=== PATIENT | female | born 1955 | race Caucasian/White ===

== ENCOUNTER 2021-04-07 16:11 | Emergency (ER) | payer MEDICARE, SELFPAY ==
--- NOTE | 2021-04-07 16:15 | ED.URI ---
HPI - URI/Sore Throat General Chief Complaint: Upper Respiratory Infection Stated Complaint: sinus infection and ear pain Time Seen by Provider: 04/07/21 16:15 Source: patient and RN notes reviewed History of Present Illness HPI Narrative: Patient is 65-year-old female who presents the urgent care with complaints of sinus pressure, postnasal drainage, cough and right ear pain. Patient states has been ongoing for approximately 2 weeks and she is concerned about pneumonia. Patient states that she was in the hospital in November due to sepsis pneumonia and she also had COVID last May. Patient currently denies of any fevers, nausea, vomiting, shortness of breath or chest pain. Patient has been using her inhalers as well as Mucinex. No other acute complaints. No acute distress noted. Patient aware of the plan of care. Some parts of this dictation were generated by voice recognition software and may contain typographical and/or grammatical inaccuracies. Related Data Home Medications Medication Instructions Recorded Confirmed albuterol sulfate See Rx Instructions .ROUTE 04/07/21 04/07/21 .COMPLEX PRN duloxetine [Cymbalta] 60 mg PO DAILY 04/07/21 04/07/21 lovastatin 40 mg PO DAILY 04/07/21 04/07/21 omeprazole 10 mg PO DAILY 04/07/21 04/07/21 Allergies Allergy/AdvReac Type Severity Reaction Status Date / Time Tetracyclines Allergy Swelling Verified 04/07/21 16:45 Review of Systems Review of Systems: CONSTITUTIONAL: Denies fever, chills, or sweats. EYES: Denies visual changes, redness, or discharge. ENT: Reported sinus pressure/congestion, postnasal drainage and right otalgia CARDIOVASCULAR: Denies chest pain, palpitations, or edema. RESPIRATORY: Reports of productive cough without dyspnea GASTROINTESTINAL: Denies abdominal pain, nausea, vomiting, or diarrhea. GENITOURINARY: Denies dysuria or hematuria. SKIN: Denies rash or itching. MUSCULOSKELETAL: Denies back pain, joint pain, or myalgia. NEUROLOGIC: Denies headache, numbness, or weakness. All other systems reviewed are negative, except as documented in HPI. PMFSH Comments At the time of my signature, I reviewed and agree with the nursing past medical, surgical, social, and family history. There is no relevant family history pertinent to the patient complaint. Exam Narrative: GENERAL: This is a well-nourished, well-developed patient, in no apparent distress. HEAD: normocephalic, atraumatic. EYES: PERRL. Sclera clear/white. Vision is grossly intact. EARS: External ears normal, auditory canals clear and without drainage, TMs normal without perforation. Hearing grossly intact. Moderate fluid noted by bilateral TMs without otitis NOSE: External nose normal with no obvious nasal discharge, nares without redness, no rhinorrhea. THROAT: Mucous membranes moist, posterior pharynx clear. Moderate postnasal drainage NECK: Neck supple CARDIOVASCULAR: Regular rate and rhythm without murmurs, gallops, or rubs. RESPIRATORY: Crackles throughout with slightly diminished bibasilar. (History of COPD/emphysema) SKIN: warm, intact with no suspicious lesions or rash, good texture and turgor. NEURO: awake, alert, and oriented to person, place and time. There were no obvious focal neurologic abnormalities. EXTREMITIES: No clubbing, cyanosis, or edema. Course Course Level of Care: Express Care Visit Vital Signs Vital signs: Vital Signs Temperature 98.9 F 04/07/21 16:24 Pulse Rate 85 04/07/21 16:24 Respiratory Rate 14 04/07/21 16:24 Blood Pressure 106/62 04/07/21 16:24 Pulse Oximetry 97 04/07/21 16:24 Temperature 98.9 F 04/07/21 16:24 Pulse Rate 85 04/07/21 16:24 Respiratory Rate 14 04/07/21 16:24 Blood Pressure 106/62 04/07/21 16:24 Pulse Oximetry 97 04/07/21 16:24 Reviewed MDM - URI/Sore Throat MDM Narrative Medical decision making narrative: Advised the patient to complete the oral antibiotic regimen as prescribed. Complete the steroid kavon
[2021-04-07 16:24] VITALS: BP 106/62; PULSE 85; RESP 14; TEMP 37.2; O2SAT 97
== END 2021-04-07 17:05 | disposition home or self-care (01) ==
PROVIDERS: Emergency Provider Nurse Practitioner Family; PCP Internal Medicine Geriatric Medicine
DX: J40 Bronchitis, not specified as acute or chronic (principal); J32.9 Chronic sinusitis, unspecified; Z86.16 Personal history of COVID-19; E78.00 Pure hypercholesterolemia, unspecified; Z96.659 Presence of unspecified artificial knee joint; F41.9 Anxiety disorder, unspecified; F32.A Depression, unspecified
CPT/HCPCS: 99213; G0463

== ENCOUNTER 2021-06-28 11:10 | Emergency (ER) | payer MEDICARE, SELFPAY ==
--- NOTE | ~2021-06-28 | XR_ITS ---
EXAMINATION: XR chest 2V EXAM DATE: 06/28/2021 11:46 INDICATION: COARSE LLL SOUNDS 06/28/21. COPD. TECHNIQUE: Frontal and lateral projections of the chest obtained and reviewed. There is no prior isai dy for comparison. FINDINGS: The lungs are hyperinflated which can be seen with chronic obstructive pulmonary disease ( a clinical diagnosis of functional impairment), but is not diagnostic of it. Linear right midlung zon e scarring or atelectasis. No confluent consolidation, pneumothorax or pleural effusion suspected. Ca rdiomediastinal silhouette is normal. There are no osseous abnormalities identified. IMPRESSION: 1. Chronic hyperinflation. 2. Right midlung zone scarring or atelectasis. Reviewed, dictated and finalized at location B.
[2021-06-28 11:14] VITALS: BP 114/70; PULSE 73; RESP 18; TEMP 36.9; O2SAT 99
--- NOTE | 2021-06-28 11:25 | ED.URI ---
HPI - URI/Sore Throat General Chief Complaint: Upper Respiratory Infection Stated Complaint: sore throat and ear pain Time Seen by Provider: 06/28/21 11:34 Source: patient and RN notes reviewed Mode of arrival: ambulatory Limitations: no limitations History of Present Illness HPI Narrative: 65-year-old female presents with concern for 1-1/2-week history of nasal congestion, postnasal drainage, foul taste in her mouth, cough, sore throat and ear pain. She denies fever, body aches, chills, sweats. She denies known sick contacts. Reports she is taken Mucinex that relief. MD elicited complaint: sore throat, rhinorrhea and nasal congestion Related Data Home Medications Medication Instructions Recorded Confirmed albuterol sulfate See Rx Instructions .ROUTE 04/07/21 06/28/21 .COMPLEX PRN duloxetine [Cymbalta] 60 mg PO DAILY 04/07/21 06/28/21 lovastatin 40 mg PO DAILY 04/07/21 06/28/21 omeprazole 10 mg PO DAILY 04/07/21 06/28/21 Allergies Allergy/AdvReac Type Severity Reaction Status Date / Time Tetracyclines Allergy Swelling Verified 06/28/21 11:12 Review of Systems Review of Systems: CONSTITUTIONAL: Report malaise, chills, sweats, or fever. EYES: Denies visual changes, redness, or discharge. ENT: Reports rhinorrhea, congestion, sinus pain, otalgia and sore throat. CARDIOVASCULAR: Denies chest pain, palpitations, or edema. RESPIRATORY: Reports cough. Denies dyspnea. GASTROINTESTINAL: Denies abdominal pain, nausea, vomiting, diarrhea SKIN: Denies rash or itching. MUSCULOSKELETAL: Denies myalgia. NEUROLOGIC: Denies headache. All systems reviewed & are unremarkable except as noted in HPI and below PMFSH Comments At time of signature, agree with nursing past medical, surgical, social and family history. There is no relevant family history pertinent to the presenting complaint Exam Narrative: GENERAL: Well-appearing, well-nourished, and in no acute distress. HEAD: Normocephalic EYES: PERRLA, conjunctivae clear ENT: Nares clear, turbinates edematous and erythematous,. Discharge. Mucous membranes moist. TM pearly salvador with dull light reflex bilaterally; no tragal tenderness. Oropharynx not erythematous without lesions. Tonsils not enlarged and without exudate, no drooling, no hoarseness, no trismus, uvula midline. NECK: Supple. No lymphadenopathy CHEST: Clear to auscultation, breath sounds equal. No wheezing, rhonchi, rales, or stridor. No respiratory distress, speaks in full sentences. Cough noted HEART: Regular rate and rhythm. No murmur heard. SKIN: Warm, dry, no rash. NEURO: Alert and oriented x3. PSYCH: Normal mood and affect Course Course Emergency Course: Patient is aware of diagnosis, understands and agrees to treatment plan. Anticipatory guidance given. Patient agrees to follow-up as directed and is aware of reasons to seek care at the emergency department. Portions of this record may have been created with voice recognition software Level of Care: Express Care Visit Vital Signs Vital signs: Vital Signs Temperature 98.5 F 06/28/21 11:14 Pulse Rate 73 06/28/21 11:14 Respiratory Rate 18 06/28/21 11:14 Blood Pressure 114/70 06/28/21 11:14 Pulse Oximetry 99 06/28/21 11:14 Temperature 98.5 F 06/28/21 11:14 Pulse Rate 73 06/28/21 11:14 Respiratory Rate 18 06/28/21 11:14 Blood Pressure 114/70 06/28/21 11:14 Pulse Oximetry 99 06/28/21 11:14 Reviewed. MDM - URI/Sore Throat MDM Narrative Medical decision making narrative: Differential diagnosis considered: Santana virus, strep pharyngitis, allergic rhinitis, upper respiratory tract infection, sinusitis, rhinosinusitis, nasopharyngitis. viral pharyngitis, otitis media, otitis externa, pneumonia, bronchitis, viral cough syndrome, viral syndrome, and influenza. Exam findings show no acute concerns or changes; patient is non-toxic appearing and is in no distress. Patient is appropriate for outpatient treatment and follow-up. Lab Bg
== END 2021-06-28 12:05 | disposition home or self-care (01) ==
PROVIDERS: Emergency Provider Nurse Practitioner; PCP Internal Medicine Geriatric Medicine
DX: J32.9 Chronic sinusitis, unspecified (principal); J40 Bronchitis, not specified as acute or chronic; E78.00 Pure hypercholesterolemia, unspecified; Z86.16 Personal history of COVID-19; F32.A Depression, unspecified; F41.9 Anxiety disorder, unspecified
CPT/HCPCS: 71046; 87081; 87804; 87880; 99213; G0463

== ENCOUNTER 2021-10-07 11:21 | Emergency (ER) | payer MEDICARE, SELFPAY ==
[2021-10-07 11:27] VITALS: BP 114/59; PULSE 84; RESP 20; TEMP 36.7; O2SAT 95
[2021-10-07 11:46] VITALS: BP 114/59; PULSE 84; RESP 20; TEMP 36.7; O2SAT 95
--- NOTE | 2021-10-07 12:30 | PC.NURSE ---
PT HAS BEEN UNABLE TO VOID AND HAS DRANK SEVERAL CUPS OF WATER. AWAITING URINE SPECIMEN. PROVIDER AWARE.
--- NOTE | 2021-10-07 12:30 | ED.GENADULT ---
HPI - General Adult General Chief complaint: Urogenital-Female Stated complaint: Back pains near kidney Source: patient Mode of arrival: ambulatory Limitations: no limitations History of Present Illness HPI narrative: Patient presents for evaluation of urinary symptoms. She states she has had symptoms for the last 2 weeks. Symptoms include left-sided flank pain, suprapubic pain, urinary hesitancy, urgency, frequency. She denies dysuria and hematuria. Denies any fever, chills, nausea, vomiting, vaginal bleeding or discharge. She has had urinary tract infections in the past and this feels similar. No history of kidney stone. No additional complaints or concerns. Related Data Home Medications Medication Instructions Recorded Confirmed albuterol sulfate 0.63 mg/3 mL See Rx Instructions .Route 04/07/21 10/07/21 solution for nebulization .COMPLEX PRN Shortness Of Breath duloxetine 60 mg capsule,delayed 60 mg PO DAILY 04/07/21 10/07/21 release (Cymbalta) lovastatin 40 mg tablet 40 mg PO DAILY 04/07/21 10/07/21 omeprazole 10 mg capsule,delayed 10 mg PO DAILY 04/07/21 10/07/21 release Allergies Allergy/AdvReac Type Severity Reaction Status Date / Time Tetracyclines Allergy Swelling Verified 10/07/21 11:40 Review of Systems Review of Systems: CONSTITUTIONAL: Denies fever, chills, or sweats. EYES: Denies visual changes, redness, or discharge. ENT: Denies rhinorrhea, congestion, sore throat, or otalgia. CARDIOVASCULAR: Denies chest pain, palpitations, or edema. RESPIRATORY: Denies cough or dyspnea. GASTROINTESTINAL:Reports suprapubic pain. Denies nausea, vomiting, or diarrhea. GENITOURINARY: Reports urinary frequency, urgency, hesitancy. Denies dysuria or hematuria. SKIN: Denies rash or itching. MUSCULOSKELETAL:Reports left lower back pain. Denies joint pain, or myalgia. NEUROLOGIC: Denies headache, numbness, dizziness, or weakness. PSYCHIATRIC: Denies anxiety or depression. [facility] Past Medical History Medical History (Updated 10/07/21 @ 13:35 by Bharat Martínez, TANI, NICOLE) Chronic pain Hyperlipidemia UTI (urinary tract infection) Surgical History Surgical History History of left knee replacement History of right knee joint replacement History of total hysterectomy Family History Family History Father Brain cancer Social History Social History Smoking packs per day: 0.5 Smoking cigarettes per day: 10.0 Smoking status: Current every day smoker Substance use: never Living arrangements: with family Gender identity (if verbalized by the patient): Female Sexual Orientation (if Verbalized by the Patient): Straight or Heterosexual Spiritual care concerns: No Exam Narrative: GENERAL: Well-appearing, well-nourished, and in no acute distress. HEAD: Normocephalic, atraumatic. EYES: PERRLA and EOMI. ENT: Nares clear, no rhinorrhea or epistaxis. Mucous membranes moist. Oropharynx without tonsillar hypertrophy exudate or other lesions. Bilateral TMs pearly salvador nonbulging NECK: Supple. No adenopathy or masses. No carotid bruits or JVD CHEST: Clear to auscultation. No respiratory distress. No wheezes rales or rhonchi HEART: Regular rate and rhythm. No murmur heard. Normal peripheral pulses. ABDOMEN: Soft, nontender, nondistended, normal active bowel sounds. BACK: Mild left sided CVA tenderness EXTREMITIES: Normal range of motion. No edema. SKIN: Warm, dry, no rash. NEURO: No focal deficits. Alert and oriented x3. PSYCH: Normal mood and affect. Course Course Emergency Course: This is a 65-year-old female who presented with complaints of left lower back pain and urinary symptoms. Was concerned she had a kidney stone. She thought she may have a urinary tract infection. There was no evidence of infection in her
== END 2021-10-07 13:40 | disposition home or self-care (01) ==
PROVIDERS: Emergency Provider Nurse Practitioner
DX: N23 Unspecified renal colic (principal); R35.0 Frequency of micturition; R39.15 Urgency of urination; R39.11 Hesitancy of micturition; E78.5 Hyperlipidemia, unspecified; Z96.653 Presence of artificial knee joint, bilateral; F17.219 Nicotine dependence, cigarettes, with unspecified nicotine-induced disorders
CPT/HCPCS: 81003; 99212; G0463

== ENCOUNTER 2022-02-23 17:51 | Emergency (ER) | payer MEDICARE, SELFPAY ==
[2022-02-23 18:08] VITALS: BP 113/61; PULSE 105; RESP 18; TEMP 37.2; O2SAT 94
--- NOTE | 2022-02-23 19:30 | ED.URI ---
HPI - URI/Sore Throat General Chief Complaint: Upper Respiratory Infection Stated Complaint: Sinus Pain/Ear Pain Time Seen by Provider: 02/23/22 19:30 Source: patient, RN notes reviewed and old records reviewed Mode of arrival: ambulatory Limitations: no limitations History of Present Illness HPI Narrative: 66 year old female accompanied by spouse who is also ill presents to express care with complaints of one week duration of sinus congestion, pressure, drainage of yellow green drainage with occasional bloody nose, ear pain and pressure some post nasal drainage in throat. Patient denies any sore throat, fevers, wheezing or shortness of breath. Patient is daily tobacco user. Patient reports that she had COVID one year ago ad was very ill at that time. Patient reports that she has had COVID vaccinations. She has been taking Sudafed for her congestion MD elicited complaint: rhinorrhea, nasal congestion, sinus pain and other (frontal headache) Pertinent past history: pneumonia and other (tobacco abuse) Pain scale (0-10): 9 Treatments prior to arrival: acetaminophen, ibuprofen and other (sudafed, ) Related Data Home Medications Medication Instructions Recorded Confirmed albuterol sulfate 0.63 mg/3 mL See Rx Instructions .Route 02/23/22 02/23/22 solution for nebulization .COMPLEX PRN sob albuterol sulfate 90 mcg/actuation 2 puff inhalation QID PRN sob 02/23/22 02/23/22 aerosol inhaler duloxetine 60 mg capsule,delayed 60 mg PO DAILY 02/23/22 02/23/22 release lovastatin 40 mg tablet 40 mg PO DAILY 02/23/22 02/23/22 Allergies Allergy/AdvReac Type Severity Reaction Status Date / Time Tetracyclines Allergy Swelling Verified 02/23/22 19:02 Review of Systems Review of Systems: CONSTITUTIONAL: Denies fever, chills, or sweats. EYES: Denies visual changes, redness, or discharge. ENT: Reports rhinorrhea, congestion, no sore throat, positive for otalgia. CARDIOVASCULAR: Denies chest pain, palpitations, or edema. RESPIRATORY: Denies cough or dyspnea. GASTROINTESTINAL: Denies abdominal pain, nausea, vomiting, or diarrhea. GENITOURINARY: Denies dysuria or hematuria. SKIN: Denies rash or itching. MUSCULOSKELETAL: Denies back pain, joint pain, or myalgia. NEUROLOGIC: frontal headache, no numbness, or weakness. PSYCHIATRIC: Positive history of anxiety or depression. All systems reviewed & are unremarkable except as noted in HPI and below PMFSH Past Medical History Medical History (Updated 03/02/22 @ 17:29 by Susan Luna NP) Chronic pain Hyperlipidemia UTI (urinary tract infection) Surgical History Surgical History History of left knee replacement History of right knee joint replacement History of total hysterectomy Family History Family History Father Brain cancer Social History Social History (Updated 03/02/22 @ 17:25 by Susan Luna NP) Smoking packs per day: 0.5 Smoking cigarettes per day: 10.0 Years smoked: 50 Smoking pack-years: 25.00 Smoking status: Current every day smoker Substance use: never Gender identity (if verbalized by the patient): Female Sexual Orientation (if Verbalized by the Patient): Straight or Heterosexual Spiritual care concerns: No Comments At time of signature, agree with nursing past medical, surgical, social and family history. There is no relevant family history pertinent to the presenting complaint Exam Narrative: GENERAL: Well-appearing, well-nourished, and in no acute distress. HEAD: Normocephalic, atraumatic. EYES: PERRLA and EOMI. ENT: Nares red and swollen yellow green rhinorrhea. Mucous membranes moist.Roght TM red and bulging Left TM normal with dull light reflex, throat red with no lesions or exudates,post nasal drainage noted. NECK: Supple.no lymphadenopathy CHEST:scattered wheezes on auscultation. No respiratory distress.SAO2
== END 2022-02-23 20:00 | disposition home or self-care (01) ==
PROVIDERS: Emergency Provider Registered Nurse; PCP Internal Medicine Geriatric Medicine
DX: J32.9 Chronic sinusitis, unspecified (principal); H66.91 Otitis media, unspecified, right ear; J40 Bronchitis, not specified as acute or chronic; F17.210 Nicotine dependence, cigarettes, uncomplicated; E78.5 Hyperlipidemia, unspecified; Z96.653 Presence of artificial knee joint, bilateral
CPT/HCPCS: 99213; G0463

== ENCOUNTER 2024-11-23 11:00 | Emergency (ER) | payer MEDICARE, SELFPAY ==
--- OUTSIDE RECORDS SUMMARY | 2022-05-17 03:00 | XMS_ITS | Continuity of Care Document ---
Author Organization [facility] [place] Address [address] [facility] utiedilberto Garcia [address] [place] [phone] Phone Care Team Providers Care Superintendent Plant Name Role Phone Nate Gonzales MD Unavailable Unavailable Allergies, Adverse Reactions, Alerts Substance Reaction Status Criticality sertraline Active No Information risedronate sodium Active No Inform ation ibandronate sodium Active No Inform ation clonidine Active No Information Antihistamines - Alkylamine Active No Information alendronate sodium Active No Inform ation tetracycline Active No Information Medications Medication Instructions Dosage Effective Dates (start - stop) Status Comments Vitamin B-12 1,000 mcg tablet take one tablet by mouth daily - Active Vitamin D3 2,000 unit capsule take one tablet by mouth daily - Active albuterol sulfate 2.5 mg/3 mL (0.083 %) solution for nebulization inhale 3 milliliter by nebulization route 3 times every day 2.5 MG - Active azelastine 137 mcg (0.1 %) nasal spray aerosol spray 2 spray by intranasal route 2 times every day in each nostril - Active tramadol 50 mg tablet take 1 tablet by o ral route every 6 hours as needed 50 MG - Active lovastatin 40 mg tablet take 2 tablet by oral route every day with the evening meal 80 MG - Active Macrobid 100 mg capsule take 1 capsule by oral route every 12 hours with food 100 MG - Active Procedures Procedure Date No Charge Optomap Fundus Photos 023 No Charge Refraction Eye Exam, New Patient No Charge GDX Retina No Charge Refraction Post-op Follow-up Visit Post-op Follow-up Visit Post-op Follow-up Visit Remove Cataract, Insert Lens No Charge Refraction Post-op Follow-up Visit Post-op Follow-up Visit Post-op Follow-up Visit Remove Cataract, Insert Lens No Charge Refraction No Charge Orbscan IOLMaster IOLMaster Eye Exam, New Patient Advance Directives Directive Yes / No Effective Date File Name No Information Encounters Encounter Description Practice Location Reason(s) For Visit Diagnoses Date Provider Providers Copied on Encounter [facility] [employer] [facility], [facility] [address], [place], [place], [id number], [place] tel:[phone] SEC [place] YULIANA Professional yag pc evaluation (chief complaint) Presence of intraocular lensVitreous degeneration , bilateral Mar-0 3-202 3 Christian Sullivan. [address] [facility], [facility] [place], [address], [place]. tel:[phone] Referring Provider: Lu Reynolds OD, [address], [address]. tel:[phone] [facility], [address] [address], [place], [place], [id number], [place] tel:[phone] SEC Rommel YULIANA Professional Post-Op (chief complaint) Follow-up examination after eye surgery 0-201 8 Christian Sullivan. [address] [facility], [facility] [address], [place], [place], [id number], [place]. tel:[phone] Referring Provider: Lu Reynolds OD, [address], [address]. tel:[phone] [facility] [facility], [address] [address], [place], [place], [id number], [place] tel:[phone] SEC Rommel BRIDGES Professional 1 wk CE PO (chief complaint) Follow-up examination after eye surgery 8 Bernard AUBREE Ivanna. [address] [facility], [facility] [place], [facility], . tel:[phone] Referring Provider: Nate Boyer, [address] [facility] [address], [place], [address]. tel:[phone] [facility], [address] [address], [place], [place], [id number], [place] [phone] SEC Rommel BRIDGES Professional 1 day CE PO (chief complaint) Follow-up examination after eye surgery 8 Rosen Juliana. [address] [place], [place], [facility], . tel:[phone] Referring Provider: Nate Boyer [address] [facility] [address], [place], [address]. tel:[phone] [facility], [address] [address], [place], [place], [id number], [place] tel:[phone] [facility] No Information 8 Christian Sullivan. [address] [facility] [place], [id number], [place]. tel:[phone] Referring Provider: Nate Boyer [address] [facility] [address], [place], [address]. tel:[phone] [facility], [address] [address], [place], [place], [id number], [place] tel:[phone] SEC Rommel BRIDGES Professional Post-Op (chief complaint) Follow-up examination after eye surgery 8 Rosen Juliana. [address] [place], [place], [facility], [place]. tel:[phone] Referring Provider: Nate Boyer [address] [facility] [address], [place], [address]. tel:[phone] [facility], [address] [address], [place], [place], [id number], [place] tel:[phone] SEC Rommel BRIDGES Professional 1 wk CE PO (chief complaint) Follow-up examination after eye surgery 8 Jessika Andrews. [address] [place], [address], [place]. tel:[phone] Referring Provider: Nate Boyer, [address] [facility] [address], [place], [address]. tel:[phone] [facility], [address] [address], [place], [place], [address], [place] [phone] SEC Rommel BRIDGES Professional 1 day p/o PCIOL (chief complaint) No Information 8 Jessika Andrews. [address] [place], [address], [place]. tel:[phone] Referring Provider: Nate Boyer, [address] [facility] [address], [place], [address]. tel:[phone] [facility], [address] [address], [place], [place], [address], [place] tel:[phone] [facility] No Information 8 Christian Sullivan. [address] [facility], [place], [address], [place]. tel:[phone] Referring Provider: Nate Boyer, [address] [facility] [address], [place], [address]. tel:[phone] [facility], [address] [address], [place], [place], [address], [place] [phone] SEC Rommel BRIDGES Professional Cataract evaluation (chief complaint) No Information Christian Sullivan. [address] [facility], [address], [place], [place], [address], [place]. tel:[phone] Referring Provider: Nate Boyer, [address] [facility] [address], [place], [address]. tel:[phone] Family History Family Member Type Diagnosis Age At Onset No Information Payers Payer name Insurance type Covered green party ID Denia greene(s) [facility] Mdcr Adv CI [id number] Social History Type Description Quantity Date Captured Comments Alcohol Use Details No Caffeine Use Details No Tobacco Use Status Cigarette smoker Smoking Status Current every day smoker Smoking Tobacco Use Details Cigarette: No Details Available Cigarette: No Details Available Sex Female Chief Complaint And Reason For Visit From encounter dated '05/17/2022 08:00'. yag pc evaluation (chief complaint). Description: The 66 year old patient presents for a yag pc evaluation per Dr. Lu Reynolds. Patient c/o decreased vision ou x 6 months. Patient is having a hard time reading small print. Patient has a hard time watching TV. Patient is bothered by glare around lights at night. Reason For Referral Reason For Referral No Information Plan Of Treatment Date Type Action Status Goal Tobacco cessation counseling completed Goal Tobacco cessation counseling completed Goal Tobacco cessation counseling completed Goal Tobacco cessation counseling completed History Of Present Illness Encounter Date Complaint History Of Prese nt Illness yag pc evaluation The 66 year ol d patient presents for a yag pc evaluation per Dr. Lu Reynolds. Patient c/o decreased vision ou x 6 months. Patient is having a hard time reading small print. Patient has a hard time watching TV. Patient is bothered by glare around lights at night. Post-Op The 61 year old female presents for a 1 month post op CE OD. Patient is pseudo ou. Patient is finished with drops. Patient c/o a smudge in OD vision and states its been there since sx. 1 wk CE PO The 61 year old female presents for evaluation of 1 wk CE PO in the right eye. Pt reports she is using Vigamox QID OD, Ketorolac QID OD, and Pred QID OD. Pt reports she sees a smudge in her VA, OD, intermittent, x about 3 days, right in the middle, like a thumbprint. Pt denies any pain or irritation today, OU. 1 day CE PO The 61 year old female presents for evaluation of 1 day CE PO in the right eye. Pt reports she is using Vigamox QID OD, Pred QID OD, and Ketorolac TID OD. PO instructions were given explained and understood by pt. Pt denies any pain or irritation today, OU. Post-Op The 61 year old female presents for a 2 week post op CE OS. Patient is using Pred, Vigamox and Ketorolac tid OS. Patient states OS is doing good. Patient wishes to Proceed with CE OD because vision is blurry and is bothered by glare at night. 1 wk CE PO The 61 year old female presents for evaluation of 1 wk CE PO in the left eye. Pt reports she is using Vigamox TID OS, Pred TID OS, and Ketorolac TID OS. Pt reports OS seems to be doing great, since CE and no pain or irritation today, OU. 1 day p/o PCIOL The 61 year old female presents for evaluation of 1 day p/o PCIOL in the left eye. Patient instructed on use of Vigamox, Pred, and Ketoralac as well as eye shield. Patient doing good everything is bright! Cataract evaluation The 61 year old female presents for evaluation of Cataract evaluation in the right eye and left eye. Hx of CAT OU. Pt denies any ocular Sx, OU. 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 Pt reports she has a hard time driving at night due to glare from oncoming headlights, OU, x 1 yr or so. Pt reports she doesn't use any gtts, OU. Pt reports OU feels terri, x couple mos. Functional Status Date Functional Assessmen t No Information Instructions Date Instruction Additional Infor sherry Impression/Plan Impression/Plan Impression/Plan As scheduled Related to Follo w-up examination after eye surgery Impression/Plan Related to Follo w-up examination after eye surgery As scheduled Related to Follo w-up examination after eye surgery Impression/Plan Related to Follo w-up examination after eye surgery As scheduled Related to Follo w-up examination after eye surgery Impression/Plan Related to Follo w-up examination after eye surgery As scheduled Related to Follo w-up examination after eye surgery Impression/Plan Related to Follo w-up examination after eye surgery Surgery advised: leeanna ks, benefits, alternatives discussed. Related to Age-related nuclear cataract, right eye Impression/Plan Assessments Type Assessment Date assessment Presence of intraocular lens May assessment Vitreous degeneration, bilateral Patient Care Teams Name Effective Dates (start - stop) Status Members No Information
--- NOTE | ~2024-11-23 | XR_ITS ---
EXAMINATION: XR chest 2V DATE: 11/23/2024 11:26 INDICATION: COPD. 2 weeks of cough and congestion. TECHNIQUE: frontal and lateral views of the chest were obtained. COMPARISON: Chest radiograph dated 06/28/2021 FINDINGS: Lungs are hyperexpanded. There are new nodular opacities projecting along the lateral right midlung zone suspicious for calcification associated with healing rib fractures. Mild streaky bibasilar atelectasis. No pleural effusion or pneumothorax. Heart size is normal. Unchanged old healed lateral left seventh rib. IMPRESSION: 1. Hyperexpansion of lungs and flattening of the diaphragm consistent with given history of COPD with mild streaky bibasilar atelectasis. 2. New nodular opacities projecting along the lateral right midlung zone most likely representing callus formation associated with healing rib fractures.. Correlate with clinical history and could consider either standard rib radiographs or low dose noncontrast chest CT for confirmation. Reviewed, dictated and finalized at location A. IMPRESSION: 1. Hyperexpansion of lungs and flattening of the diaphragm consistent with give n history of COPD with mild streaky bibasilar atelectasis. 2. New nodular opacities projecting along the lateral right midlung zone most l ikely representing callus formation associated with healing rib fractures.. Cor relate with clinical history and could consider either standard rib radiographs or low dose noncontrast chest CT for confirmation.
--- NOTE | ~2024-11-23 | XR_ITS ---
EXAMINATION: [id number]_RIBSBI_CR DATE: 11/23/2024 11:47 INDICATION: Abnormal chest x-ray with rib fractures 1. 3 views of the left ribs and 3 views of the right ribs were obtained in varying obliquities. COMPARISON: Chest radiograph dated 12/03/2024 FINDINGS: Relatively advanced bridging callus formation is seen about mildly displaced anterolateral right third-eighth rib fractures. Old healed fracture deformity at the lateral left seventh rib. Again seen is hyperexpansion lungs with increased lucency in the upper lung zones and mild flattening of the diaphragm consistent with COPD. Mild increased interstitial pattern with mild bronchial wall thickening at the bilateral lower lung zones without focal airspace opacities suggestive of mild pulmonary edema versus bronchitis/bronchiolitis. Heart size is normal. Mild lumbar dextrocurvature with moderate to severe lower lumbar spondylosis. IMPRESSION: 1. Calcified formation associated with likely early chronic healing fractures of the anterior right third-eighth ribs which accounts for the nodular opacities on prior chest radiograph. 2. Appearance consistent with COPD with mild increased initial pattern and bronchial wall thickening at the bilateral lower lung zones which could represent mild pulmonary edema or bronchitis/bronchiolitis. Reviewed, dictated and finalized at location A. IMPRESSION: 1. Calcified formation associated with likely early chronic healing fractures o f the anterior right third-eighth ribs which accounts for the nodular opacities on prior chest radiograph. 2. Appearance consistent with COPD with mild increased initial pattern and bron chial wall thickening at the bilateral lower lung zones which could represent m ild pulmonary edema or bronchitis/bronchiolitis.
[2024-11-23 11:10] VITALS: BP 114/68; PULSE 85; RESP 18; TEMP 37.1; O2SAT 93
--- NOTE | 2024-11-23 11:35 | ED.GENADULT ---
HPI - General Adult General Chief complaint: Upper Respiratory Infection Stated complaint: Chest Congestion/Cough Source: patient Mode of arrival: ambulatory Limitations: no limitations History of Present Illness HPI narrative: Patient presents for evaluation of respiratory symptoms for last 2 weeks. Cough is productive of green sputum. She has associated nasal congestion, green nasal discharge, and shortness of breath. She denies any fever, chills, nausea, vomiting. She has a history of COPD and recurrent pneumonia. She smokes half a pack per day. She has been taking some OTC medications without much improvement. No recent sick contacts to her knowledge. Related Data Home Medications ?Medication ?Instructions ?Recorded ?Confirmed ?Last Taken ?Type albuterol sulfate 0.63 mg/3 mL See Rx Instructions .Route 02/23/22 02/23/22 Unknown History solution for nebulization .COMPLEX PRN sob albuterol sulfate 90 mcg/actuation 2 puff inhalation QID PRN sob 02/23/22 02/23/22 Unknown History aerosol inhaler duloxetine 60 mg capsule,delayed 60 mg PO DAILY 02/23/22 02/23/22 Unknown History release lovastatin 40 mg tablet 40 mg PO DAILY 02/23/22 02/23/22 Unknown History umeclidinium 62.5 mcg-vilanterol inhalation 11/23/24 Unknown History 25 mcg/actuation powdr for inhalation (Anoro Ellipta) Allergies Allergy/AdvReac Type Severity Reaction Status Date / Time Tetracyclines Allergy Swelling Verified 11/23/24 11:12 Review of Systems Review of Systems: CONSTITUTIONAL: Denies fever, chills, or sweats. EYES: Denies visual changes, redness, or discharge. ENT: Reports sinus congestion and thick drainage from the nares. CARDIOVASCULAR: Reports pleuritic chest pain. Denies chest pain otherwise. Palpitations, or edema. RESPIRATORY: Reports productive cough of green sputum and shortness of breath. GASTROINTESTINAL: Denies abdominal pain, nausea, vomiting, or diarrhea. GENITOURINARY: Denies dysuria or hematuria. SKIN: Denies rash or itching. MUSCULOSKELETAL: Denies back pain, joint pain, or myalgia. NEUROLOGIC: Denies headache, numbness, dizziness, or weakness. PSYCHIATRIC: Denies anxiety or depression. [facility] Past Medical History Medical History GERD (gastroesophageal reflux disease) COPD (chronic obstructive pulmonary disease) UTI (urinary tract infection) Hyperlipidemia Chronic pain Surgical History Surgical History History of left knee replacement History of right knee joint replacement History of total hysterectomy Family History Family History Father Brain cancer Social History Social History Smoking packs per day: 0.5 Smoking cigarettes per day: 10.0 Years smoked: 50 Smoking pack-years: 25.00 Smoking status: Current every day smoker Substance use: never Living arrangements: with family Gender identity (if verbalized by the patient): Female Sexual Orientation (if Verbalized by the Patient): Straight or Heterosexual Spiritual care concerns: No Exam Narrative: GENERAL: Well-appearing, well-nourished, and in no acute distress. HEAD: Normocephalic, atraumatic. EYES: PERRLA and EOMI. ENT: Nares clear, no rhinorrhea or epistaxis. Mucous membranes moist. Oropharynx without tonsillar hypertrophy exudate or other lesions. Bilateral TMs pearly salvador nonbulging NECK: Supple. No adenopathy or masses. No carotid bruits or JVD CHEST: Rales noted on the right. Cough present on exam. No respiratory distress. No wheezes HEART: Regular rate and rhythm. No murmur heard. Normal peripheral pulses. ABDOMEN: Soft, nontender, nondistended, normal active bowel sounds. EXTREMITIES: Normal range of motion. No edema. SKIN: Warm, dry, no rash. NEURO: No focal deficits. Alert and oriented x3. PSYCH: Normal mood and affect. Course Course Emergency Course: This is a 69-year-old female who presented for evaluation of a cough. She has a history of pneumonia and this feels similar. Chest x-ray with opacity identified. There is concern for potential rib fracture. I spoke with patient she indicates she did sustain rib fractures last year after a fall. X-rays of the ribs were obtained. Clinically, her presentation is consistent with pneumonia. Will treat her due to underlying risk factors of smoking and COPD, and history of pneumonia in the past. Smoking cessation encouraged. Follow up with primary provider. Go to the ER for worsening symptoms. Pt in agreement with plan of care. Level of Care: Express Care Visit Vital Signs Vital signs: Vital Signs Temperature 37.1 C 11/23/24 11:10 Pulse Rate 85 11/23/24 11:10 Respiratory Rate 18 11/23/24 11:10 Blood Pressure 114/68 11/23/24 11:10 Pulse Oximetry 93 11/23/24 11:10 Oxygen Delivery Room Air 11/23/24 11:10 Temperature 37.1 C 11/23/24 11:10 Pulse Rate 85 11/23/24 11:10 Respiratory Rate 18 11/23/24 11:10 Blood Pressure 114/68 11/23/24 11:10 Pulse Oximetry 93 11/23/24 11:10 Oxygen Delivery Room Air 11/23/24 11:10 Medical Decision Making Vital Signs Vital Signs: Vital Signs Temperature 37.1 C 11/23/24 11:10 Pulse Rate 85 11/23/24 11:10 Respiratory Rate 18 11/23/24 11:10 Blood Pressure 114/68 11/23/24 11:10 Pulse Oximetry 93 11/23/24 11:10 Oxygen Delivery Room Air 11/23/24 11:10 Temperature 37.1 C 11/23/24 11:10 Pulse Rate 85 11/23/24 11:10 Respiratory Rate 18 11/23/24 11:10 Blood Pressure 114/68 11/23/24 11:10 Pulse Oximetry 93 11/23/24 11:10 Oxygen Delivery Room Air 11/23/24 11:10 Imaging Data Radiologist's impression: EXAMINATION: XR chest 2V DATE: 11/23/2024 11:26 INDICATION: COPD. 2 weeks of cough and congestion. TECHNIQUE: frontal and lateral views of the chest were obtained. COMPARISON: Chest radiograph dated 06/28/2021 FINDINGS: Lungs are hyperexpanded. There are new nodular opacities projecting along the lateral right midlung zone suspicious for calcification associated with healing rib fractures. Mild streaky bibasilar atelectasis. No pleural effusion or pneumothorax. Heart size is normal. Unchanged old healed lateral left seventh rib. IMPRESSION: 1. Hyperexpansion of lungs and flattening of the diaphragm consistent with given history of COPD with mild streaky bibasilar atelectasis. 2. New nodular opacities projecting along the lateral right midlung zone most likely representing callus formation associated with healing rib fractures.. Correlate with clinical history and could consider either standard rib radiographs or low dose noncontrast chest CT for confirmation. EXAMINATION: [id number] DATE: 11/23/2024 11:47 INDICATION: Abnormal chest x-ray with rib fractures 1. 3 views of the left ribs and 3 views of the right ribs were obtained in varying obliquities. COMPARISON: Chest radiograph dated 12/03/2024 FINDINGS: Relatively advanced bridging callus formation is seen about mildly displaced anterolateral right third-eighth rib fractures. Old healed fracture deformity at the lateral left seventh rib. Again seen is hyperexpansion lungs with increased lucency in the upper lung zones and mild flattening of the diaphragm consistent with COPD. Mild increased interstitial pattern with mild bronchial wall thickening at the bilateral lower lung zones without focal airspace opacities suggestive of mild pulmonary edema versus bronchitis/bronchiolitis. Heart size is normal. Mild lumbar dextrocurvature with moderate to severe lower lumbar spondylosis. IMPRESSION: 1. Calcified formation associated with likely early chronic healing fractures of the anterior right third-eighth ribs which accounts for the nodular opacities on prior chest radiograph. 2. Appearance consistent with COPD with mild increased initial pattern and bronchial wall thickening at the bilateral lower lung zones which could represent mild pulmonary edema or bronchitis/bronchiolitis. Discharge Plan Discharge Clinical Impression: Community acquired pneumonia Patient Disposition: Home Condition: Stable Instructions: Antibiotic Form, Pneumonia (ED) Patient Language: Chinese Prescriptions: New azithromycin 250 mg tablet See Rx Instructions .ROUTE .COMPLEX Qty: 6 0RF Rx Instructions: For 250 mg dose pack: take 500 mg today (day 1), then 250 mg for 4 days (days 2-5) prednisone 50 mg tablet 50 mg PO DAILY Qty: 5 0RF amoxicillin-pot clavulanate 875-125 mg tablet 1 tablet PO Q12H Qty: 20 0RF No Action albuterol sulfate 0.63 mg/3 mL solution for nebulization See Rx Instructions .ROUTE .COMPLEX PRN (Reason: sob) Rx Instructions: as prescribed lovastatin 40 mg tablet 40 mg PO DAILY duloxetine 60 mg capsule,delayed release(DR/EC) 60 mg PO DAILY albuterol sulfate 90 mcg/actuation Hfa Aerosol Inhaler 2 puff INHALATION QID PRN (Reason: sob) umeclidinium-vilanterol [Anoro Ellipta] 62.5-25 mcg/actuation blister with device INHALATION Follow-up/Referrals: Malgorzata,MD Debbie [Primary Care Provider] Time of Disposition: 12:30
--- OUTSIDE RECORDS SUMMARY | 2024-11-23 12:49 | XMS_ITS | Encounter Summary ---
Author Organization [facility] Healthcare Address [address] [place] [address] Care Team Providers Care Pipe Supervisor Name Role Phone Debbie Mcgarry MD Primary Care Provider [phone] Talon Levy MD Unavailable [phone] Nerissa Rosario MD Unavailable [phone] Cricket Gamez MD Unavailable Encounter Details Date Type Department Care Team (Late st Contact Info) Description 06/24/2022 Telephone [facility] [address] [place] [address] Amalia Llanes, RT Social History Tobacco Use Types Packs/Day Years Used Date Smoking Tobacco: Every Day Cigarettes 1 53.7 Started: 1971 Passive Smoke Exposure: Never Smokeless Tobacco: Never Alcohol Use Standard Drinks/Week Comments No 0 (1 standard drink = 0.6 oz pur e alcohol) AUDIT-C Answer Date Recorded Q1: How often do you have a drink containing alc ohol? 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[employer]) Not on file Not on file Not on file documented as of this encounter Plan of Treatment Not on file documented as of this encounter Visit Diagnoses Not on filedocumented in this encounter Additional Health Concerns Infection Onset Date Last Indicated Resolved Time COVID: Suspected 06/30/2024 06/30/2024 06/30/2024 4:55 PM CDT documented as of this encounter Care Teams Pipe Supervisor Relationship Specialty Start Date End Date Debbie Mcgarry MD PCP - General 06/14/16 Talon Levy MD [address] [place] [address] [address] [address] Surgeon Orthopedic Surgery 01/07/17 [place] [id number] [place] [address] Referring Physician Endocrinology Diabetes & Metabolism 08/02/21 [place] [id number] [place] [address] Consulting Physician Pulmonary Disease 08/23/21 documented as of this encounter
--- OUTSIDE RECORDS SUMMARY | 2024-11-23 12:50 | XMS_ITS | Clinical Summary ---
Author Organization [facility] Address [address] [place] [address] Care Team Providers Care Sewing Trimmer Name Role Phone Debbie Mcgarry MD Primary Care Provider [phone] Talon Levy MD Unavailable [phone] Nerissa Rosario MD Unavailable [phone] Cricket Gamez MD Unavailable Allergies Active Allergy Reactions Criticality Noted Date Comments Alendronate Nausea only Low Antihistamines - Alkylamine Other (See comments) Low Reaction: skin crawl, Antihistamines - Ethanolamine Unknown Low Skin cralw Clonidine Fatigue Low Reaction: fatigue, Ibandronate Other (See comments) Low Reaction: gi, Risedronate Nausea only Low Reaction: nausea, Sertraline Other (See comments) Low Reaction: wt gain, Tetracycline Swelling Medium Medications cyanocobalamin (Vitamin B-12) 1,000 mcg tablet take 1 by Oral route every day 90 3 012 Active cholecalciferol (VITAMIN D-3) 2,000 unit capsule take 1 by Oral route every day 90 1 012 Active acetaminophen (TYLENOL) 500 mg tabletIndications :Pain Take 1 tablet (500 mg total) by mouth every 6 (six) hours as needed for pain Active albuterol 0.63 mg/3 mL nebulizer solutionIndicatio ns:Centrilobular emphysema (HCC) Take 3 mL (0.63 mg total) by nebulization every 6 (six) hours as needed for wheezing 360 mL [address] (NexIUM) 20 mg capsule Take 1 capsule (20 mg total) by mouth daily before breakfast Active albuterol HFA (Proventil HFA) 90 mcg/actuation inhalerIndication s:Chronic obstructive pulmonary disease, unspecified COPD type (HCC) Inhale 2 puffs every 4 (four) hours as needed for wheezing or shortness of breath 18 [address] (CYMBALTA) 60 mg capsuleIndication s:Arthritis Take 1 capsule (60 mg total) by mouth daily 90 capsule 3 025 Active lovastatin (MEVACOR) 40 mg tabletIndications :Multiple-type hyperlipidemia Take 1 tablet (40 mg total) by mouth daily 90 tablet 3 025 Active ipratropium-albut Nii (DUO-NEB) 0.5-2.5 mg/3 mL nebulizer solutionIndicatio ns:COPD Exacerbation Take 3 mL by nebulization every 6 (six) hours 180 mL 025 Active lidocaine (ASPERCREME) 4 % adhesive patch,medicatedIn dications:Rib contusion, right, subsequent encounter Place 1 patch on the skin 2 (two) times a day for 12 hours 8 patch 2 Active Additional Information Patient not taking.Reported on 10/11/2024 diclofenac sodium (VOLTAREN) 1 % gelIndications:Ri b contusion, right, subsequent encounter Apply 2 g topically 4 (four) times a day 100 g 2 025 Active Additional Information Patient not taking.Reported on 10/11/2024 buPROPion XL (WELLBUTRIN XL) 150 mg 24 hr tabletIndications :Tobacco dependence syndrome Take 1 tablet (150 mg total) by mouth every morning 30 tablet 1 025 Active celecoxib (CeleBREX) 200 mg capsuleIndication s:Rib contusion, right, subsequent encounter Take 1 capsule (200 mg total) by mouth daily 30 capsule 1 025 Active Additional Information Patient not taking.Reported on 10/11/2024 umeclidinium-marilu nteroL (ANORO ELLIPTA) 62.5-25 mcg/actuation blister with deviceIndications :Bronchospasm Prevention with COPD Inhale 1 puff daily 90 each 3 025 2025 Active methylPREDNISolon e (Medrol, Tanvir,) 4 mg Dosepack Take as directed on package 1 packet 025 Active aspirin 81 mg chewable tabletIndications :Deep Vein Thrombosis Prevention Take 1 tablet (81 mg total) by mouth 2 (two) times a day for 28 days 56 tablet 019 2020 Discontinued fluticasone propionate (FLONASE) 50 mcg/actuation nasal sprayIndications: Chronic rhinitis Administer 2 sprays into each nostril daily 30 mL 5 020 2020 Discontinued ipratropium (ATROVENT) 0.03 % nasal sprayIndications: Chronic rhinitis Administer 2 sprays into each nostril 2 (two) times a day 30 mL 5 020 2020 Discontinued Active Problems Problem Noted Date Diagnosed Date Syncope 07/01/2024 CAP (community acquired pneumonia) 06/30/2024 Assessment & Plan (09/15/2024 3:20 PM CDT): Possible aspiration pneumonia Her repeat CT shows significant resolution of the opacities to the right lower lobe and clinically she has improved. I am awaiting radiology read Consider swallow study in the future if she were to have recurrent pneumonias Assessment & Plan (07/11/2024 5:30 PM CDT): Possible aspiration pneumonia although she denies difficulty swallowing Repeat CT in about 5 weeks to ensure resolution Consider swallow study in the future Nasal polyp 10/13/2023 Assessment & Plan (10/13/2023 8:21 PM CDT): Complaining of nosebleeds since yesterday. Nasal polyp found in right nasal cavity on exam today. no current bleeding or acute signs of infection. Mild maxillary tenderness. Prescribed Afrin nasal spray as instructed. We will refer to ENT for further assessment and likely nasal endoscopy. Recurrent epistaxis 10/13/2023 Assessment & Plan (10/13/2023 8:23 PM CDT): Nose bleeds as described in HPI. Mild maxillary tenderness and right nasal polyp found on exam today. No current bleeding or acute signs of infection. Prescribed Afrin nasal spray as instructed. We will refer to ENT for polyp and likely need of nasal endoscopy. Cigarette nicotine dependence without complicati on 07/01/2023 Assessment & Plan (09/15/2024 3:24 PM CDT): - Smoking cessation counseling and techniques reviewed at length - Avoid triggers and use distraction techniques - [place] [employer] [facility]uit line: 4-881-HXZB-YES for free services 4 minutes spent discussing cessation She is uninterested in NRT today Assessment & Plan (07/11/2024 5:26 PM CDT): - Smoking cessation counseling and techniques reviewed at length - Avoid triggers and use distraction techniques - [place] [employer]uit line: 0-984-JFXO-YES for free services 5 minutes spent discussing cessation She is pre-contemplative Assessment & Plan (07/01/2023 11:57 AM CDT): - Smoking cessation counseling and techniques reviewed at length - Avoid triggers and use distraction techniques - [place] [employer] [facility] line: 7-745-MNDP-YES for free services 3 minutes spent discussing cessation She will let me know if she decides she wants to quit in the future Subacromial impingement of left shoulder 023 Dysfunction of left rotator cuff 07/03/2022 COPD exacerbation 11/21/2021 Assessment & Plan (11/21/2021 4:29 PM CDT): Fever and chills last week - resolved today. Patient reports wheezing, purulent nasal discharge and yellow-tinged sputum production with coughing - denies shortness of breath, chest tightness/pain, decreased activity tolerance. Diffuse wheezing throughout lung lomas and severe frontal sinus tenderness on exam. Currently taking OTC Tylenol and Mucinex. Will start on Augmentin 875/125 PO BID times 10 days. Ordered CXR to rule out pneumonia. COVID and influenza A/B swabs negative. Follow up with Debbie Moss as scheduled on 11/30/2021 or sooner as necessary. Thyroid nodule greater than or equal to 1.5 cm in diameter incidentally noted on imaging study 06/19/2021 Overview (06/19/2021): 2.8 by 2.1 cm thyroid nodule for Found on CT scan lung June 2021. Thyroid sonogram and TSH ordered Multiple pulmonary nodules d etermined by computed tomography of lung 02/26/2021 Overview (02/26/2021): January 2021 chest x-ray 1. New linear densities of the right mid and lower chest appear to represent areas of worsening interval scarring change. Resolving infiltrates may also be considered. Two month follow-up films suggested to document stability and or improvement of this finding. 2. Mild COPD again noted. 3. No pneumothorax seen. February [address] lung cancer screening (+) for large mass right upper lobe and a small nodule left upper lobe COMPARISON: Chest CT without contrast 03/02/2000 FINDINGS: SMOKING RELATED LUNG DISEASE: Severe centrilobular pulmonary emphysema. LUNG NODULES: Patient has developed a spiculated nodular opacity inferior right upper lobe measuring up to 5.6 by 1.8 cm. Some adjacent millimetric nodules. Development of a 1 cm spiculated nodule left upper lobe image 24. Vane Dick M.D. at [facility] Assessment & Plan (07/01/2023 11:55 AM CDT): Left upper lobe spiculated nodule remains stable Continue with annual screening, next due June 2024 History of total knee arthroplasty, right 2018 History of Freeman's esophagus 01/07/2017 Centrilobular emphysema 12/29/2016 Assessment & Plan (09/15/2024 3:21 PM CDT): Continue Anoro Ellipta one puff daily at the same time. She can use albuterol 2 puffs every 4-6 hours as needed only, discussed indications for use No significant peripheral eosinophilia We have discussed signs and symptoms that would require earlier evaluation or change to her plan of care. Assessment & Plan (07/11/2024 5:29 PM CDT): Continue Anoro Ellipta one puff daily at the same time. We have reviewed technique She can use albuterol 2 puffs every 4-6 hours as needed only, discussed indications for use No significant peripheral eosinophilia Repeat PFT and six minute walk testing We have discussed signs and symptoms that would require earlier evaluation or change to her plan of care. Assessment & Plan (07/01/2023 11:56 AM CDT): She is not on maintenance inhaled therapy We have again discussed the benefits of dual bronchodilator therapy She is uninterested at this time She can use albuterol as needed only, discussed indications for use Multiple-type hyperlipidemia 07/31/2013 Overview (06/20/2016): Hyperlipemia Osteoporosis, idiopathic 04/14/2013 Overview (04/24/2023): DEXA bone density (+) osteoporosis June 2022 AP LUMBAR SPINE L1-L4:Total BMD is 0.754 g/cm2 T-score is -2.7 LEFT HIP:Total BMD is 0.710 g/cm2 T-score is -1.9 Femoral neck BMD is 0.558 g/cm2 T-score is -2.6 FRAX: FRAX not reported due to T-scores of hip, femoral neck and/or spine being at or below -2.5 (Osteoporosis). 01/28/17 - Reclast #1; 03/04/18 - Reclast #2; 05/31/2019 - Reclast #3, November 2020 Reclast # 4 07/16/2022, Reclast # 5. 07/18/2023 For osteoporosis Hx of adenomatous colonic polyps 10/25/2012 Overview (01/07/2017): Adenomatous colon polyp Dr. Douglas (+) 2012 Moderate tobacco dependence in early remission 0 10/07/2012 Overview (06/19/2016): Tobacco abuse Resolved Problems Problem Noted Date Diagnosed Date Resolved Date Left thyroid nodule 07/03/2021 04/16/19 23 Hospital discharge follow-up 01/02/2021 04/16/2022 Assessment & Plan (01/02/2021 12:05 PM CDT): Patient presents today for hospital discharge follow up. She states overall she is feeling well. She states she is up and doing her normal day to day tasks without issue. She has completed her antibiotic as prescribed. Medications were reviewed and list updated. She will follow up as scheduled or sooner if needed. Acute respiratory failure with hypoxia 12/19/2020 04/25/2021 Legionella pneumonia 12/18/2020 023 Assessment & Plan (01/02/2021 12:10 PM CDT): Patient recently diagnosed and treated for pneumonia. Has completed levaquin as prescribed per hospital. She is overall feeling well. She denies any SOB, fever, chills or fatigue. She reports chronic cough. Her oxygen saturation was 98% on RA at rest and remained above 95% on RA with ambulation. She is requesting that oxygen therapy be removed from home as she does not want or need. We will discontinue therapy. We will do repeat CXR in 6 weeks to verify resolution of pneumonia. Patient will f/u as scheduled or sooner if needed. Pneumonia of right lower lob e due to infectious organism 12/15/2020 04/16/2022 Sepsis 12/15/2020 04/16/2022 Sepsis with acute hypoxic respiratory failure 12/16/19 21 04/16/2022 Cough 05/30/2020 11/28/2020 COVID-19 virus detected 05/30/202011/15 Clinical diagnosis of COVID-19 05/30/2020 04/16/2022 Sore throat 05/22/2019 11/28/2020 Pharyngitis 05/22/2019 11/28/2020 Assessment & Plan (05/22/2019 1:35 PM PAPER AND PRINTS RESTORER): Advised follow-up with her PCP next week. Acute non-recurrent frontal sinusitis 02/26/2019 04/16/2022 Assessment & Plan (11/21/2021 4:32 PM CDT): Frontal sinus tenderness, postnasal drip. Fever and chills last week - resolved today. Patient reports purulent nasal discharge and yellow-tinged sputum production with coughing - denies shortness of breath, chest tightness/pain, decreased activity tolerance. Diffuse wheezing and severe frontal sinus tenderness on exam. Currently taking OTC Tylenol and Mucinex. Encouraged sinus care and rinses. COVID and influenza A/B swabs negative. Will start on Augmentin 875/125 PO BID times 10 days. Follow up with Debbie Moss as scheduled on 11/30/2021 or sooner as necessary. Assessment & Plan (02/26/2019 5:10 PM PAPER AND PRINTS RESTORER): Patient wanted Bactrim and refused to take my recommendation of Augmentin to treat this. Bactrim DS sent to pharmacy-- 1 Tab BID x 3 days. Continue to do your OTC nasal spray and your sinus rinse. Diflucan also sent to pharmacy incase of yeast infection from antibiotic use--pt states this happens to her frequently with antibiotics. Olecranon bursitis of right elbow 02/26/2019 05/07/2019 Assessment & Plan (02/26/2019 3:07 PM PAPER AND PRINTS RESTORER): Supportive treatment consists of REST, ICE, ELEVATION and NSAID use. Pt has been instructed to do this, but since it has been evident for a month now, we can refer her to see Dr. Diaz (at her request) for possible drainage of the fluid. Primary osteoarthritis of right knee 10/23/2018 12/08/2018 Overview (10/23/2018): Added automatically from request for surgery [id number] Chronic pain disorder 01/29/20182019 Anxiety and depression 12/29/201605/07 Incontinence of urine in female 12/29/2016 05/07/2019 Chronic rhinitis 12/29/2016 04/16/2022 Assessment & Plan (05/22/2019 1:35 PM PAPER AND PRINTS RESTORER): Briefed on [id number]-ydw-[id number] measures. She should start using her Flonase. Advised to stop smoking. Arthritis 12/29/2016 04/16/2022 Vitamin D deficiency 07/31/2013 020 Overview (06/20/2016): Vitamin D deficiency Recurrent UTI 07/31/2013 05/07/2019 Overview (06/21/2016): Recurrent UTI Hyponatremia 04/16/2022 Encounters Date Type Department Care Team Description 10/11/2024 8:30 AM CDT Office Visit [facility] Medical [facility] Orthopedics and Sports Medicine [address] [place] [address] [address] [place] [address] Lauri Horowitz PA Rotator cuff insufficiency, left (Primary Dx); Osteoarthritis of left AC (acromioclavicular) joint; Biceps tendonitis on left 10/08/2024 Telephone [facility] Orthopedics and Sports Medicine [address] [place] [address] [address] [place] [address] Lauri Horowitz PA 10/07/2024 Telephone [facility] Orthopedics and Sports Medicine [address] [place] [address] [address] [place] [address] Lauri Horowitz PA 09/28/2024 Results Follow-Up [facility] Group Pulmonary at [address] [place] [address] Juárez NP CT Chest WO Contrast 09/27/2024 10:15 AM CDT Office Visit [facility] Orthopedics and Sports Medicine [address] [place] [address] [address] [place] [address] Lauri Horowitz PA Osteoarthritis of left AC (acromioclavicular) joint (Primary Dx); Biceps tendonitis on left; Rotator cuff impingement syndrome of left shoulder 09/15/2024 2:00 PM CDT Office Visit [facility] Medical [facility] Pulmonary at [address] [place] [address] Hilda Juárez NP Centrilobular emphysema (HCC) (Primary Dx); CAP (community acquired pneumonia); Cigarette nicotine dependence without complication 09/11/2024 12:38 PM CDT - 09/11/2024 11:59 PM CDT Hospital Encounter [facility] [address] [place] [address] CAP (community acquired pneumonia) Discharge Disposition: Discharge to home or self care 09/10/2024 Telephone [facility] [address] [place] [address] [facility] 08/27/2024 Telephone [facility] Medical Group [facility] [address] [place] [id number] Debbie Mcgarry MD from Last 3 Months Immunizations Immunization Administration Dates Next Due Influenza, Quadrivalent, Hig h Dose, Preservative Free, Intrr 04/24/2023,04/16/2022,12/21/2020 Influenza, Trivalent, High D ose, Split, Preservative Free, Intramuscular 05/04/2024 Influenza, Trivalent, Preser vative Free, Intramuscular 01/14/2017 Moderna SARS-CoV-2 Monovalen t Vaccination (12+ YRS) 2020,10/07/2020 Pneumococcal Conjugate PCV 13 04/26/2014 Pneumococcal Polysaccharide PPV23 01/02/2016, Tdap 01/02/2016,09/13/2005 Surgical History Surgery Date Site/Laterality Comments KNEE ARTHROSCOPY 03/17/1996 - 03/16/1997 Arthroscopy knee APPENDECTOMY 03/17/1977 - 03/16/1978 Appendectomy TOTAL ABDOMINAL HYSTERECTOMY W/ BILATERAL SALPINGOOPHORECTOMY 03/17/2001 - 03/16/2002 hysterectomy: ASHISH/BSO BLADDER REPAIR 03/17/2001 - 03/16/2002 bladder repair TUBAL LIGATION Bilateral tubal ligation KNEE ARTHROSCOPY Arthroscopy knee REPLACEMENT TOTAL KNEE 07/22/[address] Diaz successful without complications COLONOSCOPY W/ BIOPSIES AND POLYPECTOMY 10/20/2012 Dr. Douglas, 3 polyps 1 tubular adenoma TOTAL KNEE ARTHROPLASTY 11/25/2019 Right HM DNA STOOL 06/02/2023 (-) Cologuard Medical History Medical History Date Comments Hx Other Medical Left knee arthr oscopic subtotal medial and lateral; Comments: [facility] 04/11/2015 - Hyperlipidemia Hyperlipidemia Hx Other Medical GERD Osteoarthritis Osteoarthritis Depression Depression GERD (gastroesophageal reflu x disease) Recurrent UTI Fibrocystic breast Adjustment disorder Fatty liver Chronic rhinitis 12/29/2016 4, not currently Para 3 miss 1 COPD (chronic obstructive pu lmonary disease) Cigarette nicotine dependenc e without complication 07/01/2023 Pulmonary nodule 02/26/2021 c hest x-ray 1. New linear densities of the right mid and lower chest appear to represent areas of worsening interval scarring change. Resolving infiltrates may also be considered. Two month follow-up films suggested to document stability and or improvement of this finding. 2. Mild COPD again noted. 3. No pneumothorax seen. February [address] lung cancer screeni Family History Medical History Relation Name Comments Cancer Brother Cancer Father Cirrhosis Father Ovarian cancer Maternal Grandmother Breast cancer Mother's Sister Cancer Other Hearing loss Paternal Grandmother Breast cancer Sister Relation Name Status Comments Brother Father Maternal Grandmother Mother's Sister Other Paternal Grandmother Sister Social History Tobacco Use Types Packs/Day Years Used Date Smoking Tobacco: Every Day Cigarettes 0.5 53.7 Started: 1971 Passive Smoke Exposure: Never Smokeless Tobacco: Never Alcohol Use Standard Drinks/Week Comments No 0 (1 standard drink = 0.6 oz pur e alcohol) [facility] Utilities Answer Date Recorded In the past 12 months has e [employer], gas, oil, or water [employer] threatened to shut off services in your home? No 07/01/2024 Social Connection and Isolation Panel Answer Date Recorded In a typical week, how many times do you talk on the phone with family, friends, or neighbors? More than three times a week 07/01/2024 How often do you get togethe r with friends or relatives? More than three times a week 07/01/2024 How often do you attend [facility] or pentecostal services? More than 4 times per year 07/01/2024 Do you belong to any clubs o r organizations such as moravian groups, unions, fraternal or athletic groups, or school groups? No 07/01/2024 How often do you attend meet ings of the clubs or organizations you belong to? Never 07/01/2024 Are you , , di vorced, , never , or living with a partner? 07/01/2024 AUDIT-C Answer Date Recorded Q1: How often do you have a drink containing alc ohol? Never 12/15/2020 Average Number of Drinks Not on file 021 Frequency of Binge Drinking Not on file 03/2020 Overall Financial Resource Strain (CARDIA) Answe r Date Recorded How hard is it for you to pa y for the very basics like food, housing, medical care, and heating? Not hard at all 07/01/2024 PHQ-2 Answer Date Recorded PHQ-2 Total Score (If total score is 3 or more points, staff should administer the PHQ-9) 0 05/04/2024 Hunger Vital Sign Answer Date Recorded Within the past 12 months, y ou worried that your food would run out before you got the money to buy more. Never true 07/02/19 25 Within the past 12 months, t he food you bought just didn't last and you didn't have money to get more. Never true 07/01/2024 PRAPARE - Transportation Answer Date Re corded In the past 12 months, has l ack of transportation kept you from medical appointments or from getting medications? No 06/15 In the past 12 months, has l ack of transportation kept you from meetings, work, or from getting things needed for daily living? No 07/01/2024 Housing Stability Vital Sign Answer Bg e Recorded In the last 12 months, was t here a time when you were not able to pay the mortgage or rent on time? No 07/01/2024 In the past 12 months, how m any times have you moved where you were living? 0 07/01/2024 At any time in the past 12 m [facility], were you homeless or living in a prison (including now)? No 07/01/2024 Personal Safety Answer Date Recorded Have you ever been in or are you currently in a harmful physical or emotional relationship or is someone making you feel afraid or unsafe? 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) Not on file Not on file Not on file Obstetrics History Last Filed Vital Signs Vital Sign Reading Time Taken Comments Blood Pressure 128/78 10/11/2024 8:22 AM CDT Pulse 83 10/11/2024 8:22 AM CDT Temperature 36.7 C (98 F) 09/15/2024 2:01 PM CDT Respiratory Rate 18 09/15/2024 2:01 PM CDT Oxygen Saturation 95% 09/15/2024 2:01 PM CDT Inhaled Oxygen Concentration - - Weight 70.8 kg (156 lb) 10/11/2024 8:22 AM CDT Height 170.2 cm (5' 7) 10/11/2024 8:22 AM CDT Body Mass Index 24.43 10/11/2024 8:22 AM CDT Plan of Treatment Health Maintenance Due Date Last Done Comments Zoster Vaccine (1 of 2) 11/05/2003 Pneumococcal vaccine 65+ (3 of 3 - PCV20 or PCV21) 01/01/2021 01/02/2016, 04/26/2014, 01/14/2001 Osteoporosis Screening-Bone Density Scan 06/25/2024 06/25/2022 Breast Cancer Screening-Mammogram 07/03/2024 07/03/2022, 05/19/2019, 07/02/2017 Covid-19 Vaccine (3 - 2024-2 6 season) 2024 2020, 10/07/2020 Influenza Vaccine (#1) 2024 , 04/24/2023, 04/16/2022, Additional history exists Depression Screening 05/04/2025 05/04/2024, 04/24/2023, 04/24/2023, Additional history exists Well Visit 65+ 05/04/2025 05/04/2024, 10/2023, 04/16/2022, Additional history exists Fall Risk Assessment 07/02/2025 07/02/2024, 05/04/2024, 04/24/2023, Additional history exists Lung Cancer Screening 09/12/2025 06/28/2023 , 06/25/2022, 12/24/2021, Additional history exists DTaP/Tdap/Td Vaccine (3 - Td or Tdap) 01/01/2026 01/02/2016, 09/13/2005 Colon Cancer Screening-DNA Stool 06/01/2026 06/02/19 24, 05/26/2023 Colon Cancer Screening-Colonoscopy 06/01/2033 06/02/2023 Hepatitis C Screening Completed 04/18/2016 Colon Cancer Screening-FIT Discontinued 05/26/2023 Hepatitis B Screening Completed 05/04/2024 Medical Devices Implanted Type Area Career Technical Education Instructor Device Identifier Shelf Expiration Date Model / Serial / Lot [employer] [id number] Attune Cruciate Retain Cementless Knee Right 6 Narrow Component - [id number] Implanted:Qty: 1 on 11/24/2018 by Talon Levy MD at [facility] Right: Knee [employer] 04/16/2027 [id number] / / [id number] [employer] [id number] Attune Cementless Rotate Platform Knee 5 Baseplate Tibial - [id number] Implanted:Qty: 1 on 11/24/2018 by Talon Levy MD at [facility] Right: Knee [employer] 12/15/2027 [id number] / / [id number] [employer] [id number] Attune 5mm Cruciate Retaining Rotate Platform Knee 6 Insert - [id number] Implanted:Qty: 1 on 11/24/2018 by Talon Levy MD at [facility] Right: Knee [employer] 07/15/2023 [id number] / / [id number] Procedures Procedure Name Priority Date/Time Associated Diagnosis Comments [place] ARTHROCENTESIS ASPIR&/INJ MAJOR JT/BURSA W/O US Routine 09/27/2024 10:15 AM CDT Osteoarthritis of left AC (acromioclavicular) joint Biceps tendonitis on left Rotator cuff impingement syndrome of left shoulder CT CHEST WO CONTRAST Schedule Routine, Read Routine (OP Routine) 09/11/2024 12:53 PM CDT CAP (community acquired pneumonia) CT LUNG CANCER SCREENING Schedule Routine, Read Routine (OP Routine) 06/28/2023 12:33 PM CDT Tobacco dependence syndrome Cigarette nicotine dependence, uncomplicated STOOL DNA COLOGUARD Routine 05/26/2023 1:30 PM CDT Colon cancer screening SCREENING MAMMOGRAM BILATERAL W VOLODYMYR Schedule Routine, Read Routine (OP Routine) 07/03/2022 4:00 PM CDT Encounter for screening mammogram for breast cancer DEXA AXIAL SKELETON BONE DENSITY 1 OR MORE SITES Schedule Routine, Read Routine (OP Routine) 06/25/2022 8:35 AM CDT Menopause HEPATITIS C ANTIBODY Routine 04/18/2016 2:55 PM PAPER AND PRINTS RESTORER from Last 3 Months or Most Recently Relevant to Health Maintenance Results * VT ARTHROCENTESIS ASPIR&/INJ MAJOR JT/BURSA W/O US (09/27/2024 10:15 AM CDT) Narrative Lauri Horowitz PA - 09/27/2024 10:15 AM CDT Lauri Horowitz PA 09/27/2024 10:19 AM Large Joint (Hip, Knee, Shoulder) Injection: L subacromial bursa Performed by: Lauri Horowitz PA Authorized by: Lauri Horowitz PA Large Joint Injection/Aspiration: Consent Given by: Patient Site marked: the procedure site was marked Timeout: prior to procedure the correct patient, procedure, and site was verified Verbal consent obtained: Yes Supporting Documentation: Indications: Pain Procedure Details: Location: Shoulder Site: L subacromial bursa Needle Size: 22 G Approach: Posterior Ultrasound guided: No Fluroscopic guidance: No Medications: 80 mg methylPREDNISolone acetate 80 mg/mL; 3 mL lidocaine 20 mg/mL (2 %) Patient tolerance: Patient tolerated the procedure well with no immediate complications [facility] Final Result * CT Chest WO Contrast (09/11/2024 12:53 PM CDT) Anatomical Region Laterality Modality Body N/A Computed Tomogra phy 09/25/2024 10:5 8 PM CDT Narrative 09/25/2024 11:03 PM CDT EXAM DESCRIPTION: CT CHEST WO CONTRAST REASON FOR STUDY: CAP, lung nodule Follow up lung nodule and pneumonia TECHNIQUE: CT scan of the chest performed without intravenous contrast using helical scanning technique. Reconstructed coronal and sagittal MPR images reviewed. All images stored on PACS. Automated exposure control was used as a dose optimization technique for this examination. COMPARISON: CT chest 06/30/2024 FINDINGS: The sensitivity for detection of solid visceral lesions is diminished without the use of intravenous contrast. LUNGS: Layering secretions within the trachea and bilateral mainstem bronchi. Severe bilateral emphysema. Mild bronchial/bronchiolar wall thickening. 8 mm spiculated nodule in the left apex is unchanged (3/18). No new or enlarging pulmonary nodule. Previously seen consolidative opacities in the right lung have resolved. No focal consolidation. PLEURA: No effusion. No pneumothorax. MEDIASTINUM/NOMI: Redemonstration of left thyroid nodule measuring up to 2.6 cm. No lymphadenopathy. HEART: Heart size is normal with no pericardial effusion. CORONARY ARTERY CALCIFICATION: Present VASCULATURE: Atheromatous disease of the aorta with coronary artery calcification. No aneurysms of the aorta. AXILLA: No adenopathy. CHEST WALL: No masses. No subcutaneous air. HARDWARE/LINES/TUBES: None. UPPER ABDOMEN: No significant abnormality. MUSCULOSKELETAL: Multiple chronic right rib fractures, new compared to prior. No acute osseous findings OTHER: No other significant abnormality. IMPRESSION: 1. Severe bilateral emphysema. Interval resolution of previously seen consolidative opacities, consistent with resolved pneumonia. 2. Stable 8 mm spiculated nodule in the left apex. No new or enlarging pulmonary nodule. 3. No thoracic lymphadenopathy. 4. Stable left thyroid nodule. THIS IS AN ELECTRONICALLY VERIFIED FINAL REPORT 09/25/2024 11:03 PM - Electronically signed by Kat Slater M.D. FT: FT Report ID: [id number] Reading Location: [id number] us Hilda Juárez NP IMG CT PROCEDURES Final Res ult * CT Lung Cancer Screening (06/28/2023 12:33 PM CDT) Anatomical Region Laterality Modality Chest N/A Computed Tomogra phy 06/30/2023 12:0 7 PM CDT Narrative 06/30/2023 12:16 PM CDT EXAM DESCRIPTION: CT LUNG CANCER SCREENING REASON FOR STUDY: Screening CT of the chest in a current smoker with a 51 pack year smoking history. Additional history: None. TECHNIQUE: Low dose CT scan of the chest was performed without intravenous contrast using helical scanning technique. The exam extends from the lung apices through the lung bases. Automatic exposure control was used as a dose optimization technique. NOTE: This study was performed for the specific purposes of lung cancer screening and is not an alternative to diagnostic chest CT. RADIATION DOSE: CT dose index volume (CTDIvol) = 0.99 mGy COMPARISON: CT chest 06/25/2022 FINDINGS: SMOKING RELATED LUNG DISEASE: Severe pulmonary emphysema. Mild bronchial wall thickening. LUNG NODULES: Stable 8 mm left apical nodule (axial image 50) which is stable dating back to 02/21/2021. Stable 3 mm right apical nodule (axial image 74). Stable 3 mm right upper lobe nodule (axial image 91). No new pulmonary nodules. CORONARY ARTERY CALCIFICATION: Present. OTHER: Stable left thyroid nodule better evaluated on ultrasound from 06/25/2022. IMPRESSION: No new pulmonary nodules. Stable pulmonary nodules measuring up to 8 mm. Severe pulmonary emphysema. Lung-RADS category 2: Benign appearance or behavior. Recommendation: Low dose Screening CT of chest in 12 months. THIS IS AN ELECTRONICALLY VERIFIED FINAL REPORT 06/30/2023 12:16 PM - Electronically signed by Jose Yap M.D. JR: Report ID: [id number] Reading Location: [place] [address] Procedure Note Jose Yap MD - 06/30/2023 EXAM DESCRIPTION: CT LUNG CANCER SCREENING REASON FOR STUDY: Screening CT of the chest in a current smoker with a51 pack year smoking history. Additional history: None. TECHNIQUE: Low dose CT scan of the chest was performed without intravenous contrast using helical scanning technique. The exam extends from the lung apices through the lung bases. Automatic exposure control was used as adose optimization technique. NOTE: This study was performed for the specific purposes of lung cancer screening and is not an alternative to diagnostic chest CT. RADIATION DOSE: CT dose index volume (CTDIvol) = 0.99 mGy COMPARISON: CT chest 06/25/2022 FINDINGS: SMOKING RELATED LUNG DISEASE: Severe pulmonary emphysema. Mildbronchial wall thickening. LUNG NODULES: Stable 8 mm left apical nodule (axial image 50) which is stable dating back to 02/21/2021. Stable 3 mm right apical nodule (axial image 74). Stable 3 mm right upper lobe nodule (axial image 91). No new pulmonary nodules. CORONARY ARTERY CALCIFICATION: Present. OTHER: Stable left thyroid nodule better evaluated on ultrasound from 06/25/2022. IMPRESSION: No new pulmonary nodules. Stable pulmonary nodules measuring up to 8 mm. Severe pulmonary emphysema. Lung-RADS category 2: Benign appearance or behavior. Recommendation: Low dose Screening CT of chest in 12 months. THIS IS AN ELECTRONICALLY VERIFIED FINAL REPORT 06/30/2023 12:16 PM - Electronically signed by Jose Yap M.D. JR: Report ID: [id number] Reading Location: [place] [address] Debbie Mcgarry MD IM CT PROCEDURES Final Re sult * Stool DNA - Cologuard (05/26/2023 1:30 PM CDT) Stool DNA - Cologuard Negative Negative [employer] [facility] (CLIA #:[id number]) Comment: NEGATIVE TEST RESULT. A negative Cologuard result indicates a low likelihood that a colorectal cancer (CRC) or advanced adenoma (adenomatous polyps with more advanced pre-malignant features) is present. The chance that a person with a negative Cologuard test has a colorectal cancer is less than 1 in 1500 (negative predictive value >99.9%) or has an advanced adenoma is less than 5.3% (negative predictive value 94.7%). These data are based on a prospective cross-sectional study of 10,000 individuals at average risk for colorectal cancer who were screened with both Cologuard and colonoscopy. (Manisha Fraser al, N Engl J Med 2014;370(14):0733-0581) The normal value (reference range) for this assay is negative. COLOGUARD RE-SCREENING RECOMMENDATION: Periodic colorectal cancer screening is an important part of preventive healthcare for asymptomatic individuals at average risk for colorectal cancer. Following a negative Cologuard result, the [place] [employer] Society and U.S. Multi-Society Task Force screening guidelines recommend a Cologuard re-screening interval of 3 years. References: [place] [employer] Guideline for Colorectal Cancer Screening: https://www.cancer.org/cancer/dcckb-cuwxyc-nwlgno/okkaqsudz-pobxvmqil-dqmlmyt/ac s-rec ommendations.html.; Rod DK, Anil CR, Oleg AvendanoK, Colorectal Cancer Screening: Recommendations for Physicians and Patients from the U.S. Multi-Society Task Force on Colorectal Cancer Screening , Am J Gastroenterology 2017; 112:4970-2613. TEST DESCRIPTION: Composite algorithmic analysis of stool DNA-biomarkers with hemoglobin immunoassay. Quantitative values of individual biomarkers are not reportable and are not associated with individual biomarker result reference ranges. Cologuard is intended for colorectal cancer screening of adults of either sex, 45 years or older, who are at average-risk for colorectal cancer (CRC). Cologuard has been approved for use by the U.S. FDA. The performance of Cologuard was established in a cross sectional study of average-risk adults aged 50-84. Cologuard performance in patients ages 45 to 49 years was estimated by sub-group analysis of near-age groups. Colonoscopies performed for a positive result may find as the most clinically significant lesion: colorectal cancer [4.0%], advanced adenoma (including sessile serrated polyps greater than or equal to 1cm diameter) [20%] or non- advanced adenoma [31%]; or no colorectal neoplasia [45%]. These estimates are derived from a prospective cross-sectional screening study of 10,000 individuals at average risk for colorectal cancer who were screened with both Cologuard and colonoscopy. (Manisha Fraser al, N Engl J Med 2014;370(14):2571-9682.) Cologuard may produce a false negative or false positive result (no colorectal cancer or precancerous polyp present at colonoscopy follow up). A negative Cologuard test result does not guarantee the absence of CRC or advanced adenoma (pre-cancer). The current Cologuard screening interval is every 3 years. ([place] [employer] Society and U.S. Multi-Society Task Force). Cologuard performance data in a 10,000 patient pivotal study using colonoscopy as the reference method can be accessed at the following location: [email or web address].IO.com/results. Additional description of the Cologuard test process, warnings and precautions can be found at www.colOn The Spot Systemsrd.com. Stool 05/26/2023 1:30 PM CDT 05/27/2023 12:50 PM CDT us Debbie Mcgarry MD LAB BODY FLUIDS AND STOOLS ORDERABLES Final Result [employer] (CLIA #:[id number]) [address] [place] [address] * Screening Mammogram Bilateral W Volodymyr (07/03/2022 4:00 PM CDT) Anatomical Region Laterality Modality Breast Bilateral Mammography Narrative 07/03/2022 5:13 PM CDT BILATERAL DIGITAL MAMMOGRAPHY The present examination has been compared to prior imaging study dated 05/19/2019. Mammography Findings CAD (computer-aided detection) software was utilized. The breasts are extremely dense, which lowers the sensitivity of mammography. No masses, significant calcifications or new abnormalities are seen. 1.7 cm probable cyst of the left retroareolar breast again noted. Impression There is no mammographic evidence of malignancy. Screening mammogram in 1 year is recommended. BI-RADS Category 2: Benign PATIENT LETTER SENT us Debbie Mcgarry MD IMG MAMMO PROCEDURES Final Result * Dexa Axial Skeleton Bone Density 1 or 2 Site (06/25/2022 8:35 AM CDT) Anatomical Region Laterality Modality Body N/A Other 06/26/2022 7:52 AM CDT Narrative 06/26/2022 7:53 AM CDT EXAM DESCRIPTION: DEXA AXIAL SKELETON BONE DENSITY 1 OR MORE SITES REASON FOR STUDY: 66 y/o year old F with given history of screening. Postmenopausal Career Technical Education Instructor/Model: [employer] (S/N [id number]) CLINICAL INFORMATION: Current height: 67 inches Maximum height: 68 inches Weight: 162 pounds Risk factors: Postmenopausal, smoking history, asthma or emphysema COMPARISON: None available FINDINGS: AP LUMBAR SPINE L1-L4: Total BMD is 0.754 g/cm2 T-score is -2.7 LEFT HIP: Total BMD is 0.710 g/cm2 T-score is -1.9 Femoral neck BMD is 0.558 g/cm2 T-score is -2.6 FRAX: FRAX not reported due to T-scores of hip, femoral neck and/or spine being at or below -2.5 (Osteoporosis). IMPRESSION: Osteoporosis. REFERENCE: Bone mineral density: Normal (T-score above or = -1.0) Low bone mass (T-score between -1.0 and -2.5) replaces the previously used term osteopenia Osteoporosis (T-score = or below -2.5) Medical evaluation for secondary causes of low bone mineral density may be appropriate. FRAX is a World Health Organization validated fracture risk assessment tool that calculates a person's 10 year probability of a major osteoporosis related fracture and hip fracture. According to the National Osteoporosis Foundation guidelines, postmenopausal women and men age 50 or older with low bone mass and a 10 year probability of a major osteoporosis related fracture = or greater than 20% or a 10 year probability of a hip fracture = or greater than 3% should be considered for treatment. For further information, including treatment recommendations, please refer to the 2013 ISCD Official Positions (http://www.iscd.org) and the NOF's Clinician's Guide to Prevention and Treatment of Osteoporosis (http://www.nof.org/professionals/clinical-guidelines) THIS IS AN ELECTRONICALLY VERIFIED FINAL REPORT 06/26/2022 7:53 AM - Electronically signed by Raphael Alas M.D. MF: [email or web address] Report ID: [id number] Reading Location: [id number] Procedure Note Raphael Alas MD - 06/26/2022 EXAM DESCRIPTION: DEXA AXIAL SKELETON BONE DENSITY 1 OR MORE SITES REASON FOR STUDY: 66 y/o year old F with given history of screening. 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 IMPRESSION: Osteoporosis. REFERENCE: Bone mineral density: Normal (T-score above or = -1.0) Low bone mass (T-score between -1.0 and -2.5) replaces thepreviously used term osteopenia Osteoporosis (T-score = or below -2.5) Medical evaluation for secondary causes of low bone mineral density may be appropriate. FRAX is a World Health Organization validated fracture risk assessmenttool that calculates a person's 10 year probability of a major osteoporosisrelated fracture and hip fracture. According to the National OsteoporosisFoundation guidelines, postmenopausal women and men age 50 or older with low bonemass and a 10 year probability of a major osteoporosis related fracture = or greater than 20% or a 10 year probability of a hip fracture = or greaterthan 3% should be considered for treatment. For further information, including treatment recommendations, please referto the 2013 ISCD Official Positions (http://www.iscd.org) and the NOF's Clinician's Guide to Prevention and Treatment of Osteoporosis (http://www.nof.org/professionals/clinical-guidelines) THIS IS AN ELECTRONICALLY VERIFIED FINAL REPORT 06/26/2022 7:53 AM - Electronically signed by Raphael Alas M.D. MF: [email or web address] Report ID: [id number] Reading Location: [id number] us Debbie Mcgarry MD IMG DXA PROCEDURES Final R esult * Hepatitis C antibody (04/18/2016 2:55 PM PAPER AND PRINTS RESTORER) SIGNAL TO CUT-OFF 0.02 <1.00 [facility]ORICAL RESULTS Comment: [facility] [address] [id number] Director: ASIYA HERNANDEZ DO,MPH Hep C Ab NON-REACT JACQUELYN NON-REACT JACQUELYN [facility] HISTORICAL RESULTS 04/18/2016 2:55 PM PAPER AND PRINTS RESTORER Debbie Mcgarry MD LAB MICROBIOLOGY - GENERAL ORDERABLES Final Result [facility] HISTORICAL RESULTS from Last 3 Months or Most Recently Relevant to Health Maintenance Insurance [facility] PPO T MEDICARE AETNA MEDICARE [facility] MEDICARE ADVANTAGE [facility] MEDICARE ADVANTAGE Advance Directives For more information, please contact: [phone] Documents on File Type Date Recorded Patient Director Of Event Marketing Expl anation ADVANCE DIRECTIVE 05/07/2019 3:29 PM DNR ADVANCE DIRECTIVE 08/09/2011 POWER OF A [employer] * Full Code (Latest Code Status on File) Date Activated Date Inactivated Comments 06/30/2024 8:50 PM 07/02/2024 7:13 PM * Full Code Date Activated Date Inactivated Comments 12/15/2020 5:01 PM 12/21/2020 6:27 PM * Full Code Date Activated Date Inactivated Comments 11/24/2018 11:26 AM 11/25/2018 8:24 PM Healthcare Agents on File Name Relationship Healthcare Agent Relationshi p Communication Marquise Han Spouse First Alternate Health Car e Agent Lauren Han Daughter Second Alternate Health Car e Agent Care Teams Sewing Trimmer Relationship Specialty Start Date End Date Debbie Mcgarry MD PCP - General 06/14/16 Talon Levy MD [address] ZACH Butler [facility] [address] [place] [address] Surgeon Orthopedic Surgery 01/07/17 [place] [address] [address] [address] Referring Physician Endocrinology Diabetes & Metabolism 08/02/21 [place] [address] [address] [address] Consulting Physician Pulmonary Disease 08/23/21
--- OUTSIDE RECORDS SUMMARY | 2024-11-23 12:50 | XMS_ITS | Encounter Summary ---
Author Organization [facility] Healthcare Address [address] [place] [address] Care Team Providers Care Manager Of Data Name Role Phone Debbie Mcgarry MD Primary Care Provider [phone] Debbie Mcgarry MD Primary Care Provider [phone] Talon Levy MD Unavailable [phone] Nerissa Rosario MD Unavailable Cricket Gamez MD Unavailable Encounter Details Date Type Department Care Team (Late st Contact Info) Description 05/28/2016 Orders Only [facility] [address] [place] [address] Scanning, Provider Social History Tobacco Use Types Packs/Day Years Used Date Smoking Tobacco: Never Assessed Comments Unknown Sex and Gender Information Value Date Recorded Sex Assigned at Not on file 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 Gender Identity Not on file Sexual Orientation Not on file documented as of this encounter Plan of Treatment Not on file documented as of this encounter Procedures Procedure Name Priority Date/Time Associated Diagnosis Comments SCAN - RADIOLOGY/IMAGING 05/28/2016 documented in this encounter Results * SCAN - RADIOLOGY/IMAGING (05/28/2016) Anatomical Region Laterality Modality Other us Provider Scanning Final Result documented in this encounter Visit Diagnoses Not on filedocumented in this encounter Additional Health Concerns Infection Onset Date Last Indicated Resolved Time COVID: Suspected 05/30/2020 05/30/2020 05/30/2020 12:10 PM CDT COVID19 05/30/2020 05/30/2020 06/13/2020 3:05 AM CDT COVID: Recovered Comment:Added based on recent COVID infection. 06/13/2020 06/29/2020 10/11/2020 3:05 AM C DT COVID: Suspected 12/15/2020 12/15/2020 12/15/2020 11:28 AM CDT COVID: Suspected 11/21/2021 11/21/2021 11/21/2021 3:05 PM CDT COVID: Suspected 02/26/2022 02/26/2022 02/26/2022 7:21 PM INSULATION INSPECTOR COVID: Suspected 06/30/2024 06/30/2024 06/30/2024 4:55 PM CDT documented as of this encounter Care Teams Manager Of Data Relationship Specialty Start Date End Date Debbie Mcgarry MD PCP - General 06/14/16 Debbie Mcgarry MD PCP - General 04/24/16 06/13/16 Talon Levy MD [address] ZACH Butler [address] [address] Surgeon Orthopedic Surgery 01/07/17 [place] [address] [place] [address] Referring Physician Endocrinology Diabetes & Metabolism 08/02/21 [place] [address] [place] [address] Consulting Physician Pulmonary Disease 08/23/21 documented as of this encounter
--- OUTSIDE RECORDS SUMMARY | 2024-11-23 12:50 | XMS_ITS | Encounter Summary ---
Author Organization [facility] Healthcare Address [address] [place] [address] Care Team Providers Care Bleach Mixer Name Role Phone Debbie Mcgarry MD Primary Care Provider [phone] Talon Levy MD Unavailable [phone] Nerissa Rosario MD Unavailable [phone] Cricket Gamez MD Unavailable Encounter Details Date Type Department Care Team (Late st Contact Info) Description 09/28/2024 Results Follow-Up [facility] Medical Group Pulmonary at [address] [place] [address] Hilda Juárez, TREY [address] [place] [address] [address] [place] [address] CT Chest WO Contrast Social History Tobacco Use Types Packs/Day Years Used Date Smoking Tobacco: Every Day Cigarettes 0.5 53.7 Started: 1973 Passive Smoke Exposure: Never Smokeless Tobacco: Never Alcohol Use Standard Drinks/Week Comments No 0 (1 standard drink = 0.6 oz pur e alcohol) [facility] Utilities Answer Date Recorded In the past 12 months has Alexis Bittar electric, gas, oil, or water company threatened to shut off services in your [...] week 07/01/2024 How often do you attend chur ch or mu-ism services? More than 4 times per year 07/01/2024 Do you belong to any clubs o r organizations such as catholic groups, unions, fraternal or athletic groups, or [...] any time in the past 12 m [facility], were you homeless or living in a detention (including now)? No 07/01/2024 Personal Safety Answer Date Recorded Have you ever been in or are you currently in a harmful physical or emotional relationship or is someone making you feel afraid or unsafe? 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 Not on file Not on file documented as of this encounter Plan of Treatment Not on file documented as of this encounter Visit Diagnoses Not on filedocumented in this encounter Care Teams Bleach Mixer Relationship Specialty Start Date End Date Debbie Mcgarry MD PCP - General 06/14/16 Talon Levy MD [address] [place] [address] [address] ZACH Butler [address] [address] Surgeon Orthopedic Surgery 01/07/17 [place] [address] [facility] [place] [address] Referring Physician Endocrinology Diabetes & Metabolism 08/02/21 [place] [address] [address] [facility] [place] [address] Consulting Physician Pulmonary Disease 08/23/21 documented as of this encounter
--- OUTSIDE RECORDS SUMMARY | 2024-11-23 12:50 | XMS_ITS | Clinical Summary ---
Author Organization [facility] Address [address] [place] [address] Care Team Providers Care Commercial Loan Processor Name Role Phone Anay Mcgarry MD Primary Care Provider [phone] Source Comments [facility],non-owned Affiliates and Associated Physician Practices is amultiple site organization consisting of ambulatory clinics and hospital sitesin [place], [place], [place] and [place]. This disclosure is being madepursuant to the Care Everywhere program and may not contain all information available regarding this patient. Last updated 17.[facility] Allergies Active Allergy Reactions Criticality Noted Date Comments Tetracyclines Swelling 09/14/2021 Medications * Be aware that medications may not be up to date on this document. Alwaysverify current medications with the patient. acetaminophen (TYLENOL) 500 MG tablet Take 500 mg by mouth every 6 hours as needed Active albuterol (ACCUNEB) 0.63 MG/3ML nebulizer solution 02/26/2021 Active albuterol HFA (PROVENTIL; VENTOLIN; PROAIR) 108 (90 Base) MCG/ACT inhaler 01/02/2021 Active DULoxetine (CYMBALTA) 60 MG capsule 07/26/2021 Active esomeprazole (NEXIUM) 20 MG capsule Take 20 mg by mouth once daily 11/28/2020 Active lovastatin (MEVACOR) 40 MG tablet 08/25/2021 Active zoledronic acid (RECLAST) 5 MG/100ML infusion Infuse 100ml (5mg total) into a venous catheter once for 1 dose. 11/28/2020 Active calcium carbonate (Calcium 600) 600 MG tablet Take 1 (one) tablet by mouth daily with food 01/18/2022 Active Active Problems Problem Noted Date Diagnosed Date Anxiety 01/18/2022 Gastroesophageal reflux disease without esophagi tis 01/18/2022 Age related osteoporosis 01/18/2022 Overview (01/18/2022): Treated with reclast: 2019 Family History Medical History Relation Name Comments Cancer Father Hyperlipidemia Mother Hypertension Mother Osteoporosis Mother Hyperlipidemia Sister 1 Thyroid Disease Sister 1 Thyroid Disease Sister 2 CAD (Coronary Artery Disease) Neg Hx CVA Neg Hx Diabetes - Type 2 Neg Hx Relation Name Status Comments Father (Age 48) Cancer Mother Sister 1 Sister 2 Alive Social History Tobacco Use Types Packs/Day Years Used Date Smoking Tobacco: Every Day Cigarettes 1 43 Smokeless Tobacco: Never Tobacco Cessation:Ready to Q uit: Not Asked; Counseling Given: Not Answered Alcohol Use Standard Drinks/Week Comments Never 0 (1 standard drink = 0.6 oz pur e alcohol) Comments Unknown Sex and Gender Information Value Date Recorded Sex Assigned at Not on file 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 Gender Identity Not on file Sexual Orientation Not on file Last Filed Vital Signs Vital Sign Reading Time Taken Comments Blood Pressure 118/60 07/26/2022 8:57 AM CDT Pulse 82 01/18/2022 9:21 AM CDT Temperature 36.5 C (97.7 F) 09/14/2021 8:48 AM CDT Respiratory Rate - - Oxygen Saturation 100% 01/18/2022 9:21 AM CDT Inhaled Oxygen Concentration - - Weight 73 kg (161 lb) 07/26/2022 8:57 AM CDT Height 170.2 cm (5' 7) 07/26/2022 8:57 AM CDT Body Mass Index 25.22 07/26/2022 8:57 AM CDT Plan of Treatment Health Maintenance Due Date Last Done Comments BONE DENSITY TESTING 1955 COLOGUARD (AGES 45-75) - COL ON CA SCREENING 1953 COLON MONITORING 1953 COLONOSCOPY - COLON CA SCREENING 1953 CT COLONOGRAPHY - COLON CA SCREENING 1953 Colorectal Cancer Screening 1955 FIT - COLON CA SCREENING 1953 FLEX SIG - COLON CA SCREENING 1953 HEPATITIS C SCREENING 10/31/1971 DTAP/TDAP/TD VACCINES (1 - Tdap) 1972 PNEUMOCOCCAL VACCINE 50+ (1 of 2 - PCV) 1972 ZOSTER VACCINE (1 of 2) 11/05/2003 LUNG CANCER SCREENING 02/21/2022 02/21/2021 SCREENING FOR DIABETES 07/26/2022 DEPRESSION SCREENING 03/17/2024 MEDICARE AWV CALENDAR YEAR 2024 MAMMOGRAM 07/03/2024 07/03/2022 COVID-19 VACCINE (3 - 2024-2 6 season) 2024 2020, 10/07/2020 INFLUENZA VACCINE (#1) 2024 01/14/2017 Respiratory Syncytial Virus (RSV) Vaccine Pt: or over 60 yrs (1 - 1-dose 75+ series) 2028 HEPATITIS B VACCINE Aged Out No longe r eligible based on patient's age to complete this topic HIB VACCINE Aged Out No longer eligi ble based on patient's age to complete this topic HPV VACCINE Aged Out No longer eligi ble based on patient's age to complete this topic MENINGOCOCCAL (Group B) VACCINE SHARED DECISION-MAKING Aged Out No longer eligible based on patient's age to complete this topic MENINGOCOCCAL GROUPS A/C/Y/W VACCINE Aged Out No longer eligible b ased on patient's age to complete this topic Insurance MANAGED MEDICARE ADV Care Teams Commercial Loan Processor Relationship Specialty Start Date End Date Anay Mcgarry MD [address] [place] [address] PCP - General Internal Medicine 07/12/21
--- OUTSIDE RECORDS SUMMARY | 2024-11-23 12:50 | XMS_ITS | Clinical Summary ---
Author Organization [facility] Address [address] [place] [address] Phone Care Team Providers Care Inspector Outside Steam Distribution Name Role Phone Debbie Mcgarry MD Primary Care Provider [phone] Medications No known medications Social History Tobacco Use Types Packs/Day Years Used Date Smoking Tobacco: Never Assessed Comments Unknown Sex and Gender Information Value Date Recorded Sex Assigned at Not on file Legal Sex Female 11:54 PM CDT Gender Identity Not on file Sexual Orientation Not on file Plan of Treatment Health Maintenance Due Date Last Done Comments Hepatitis C Virus (HCV) Screening 1955 Cologuard 1998 Colonoscopy 1998 Colorectal Cancer Screening 1998 Immunochemical Fecal Occult Blood 1998 Zoster Immunization (1 of 2) 11/05/2003 Influenza Immunization (#1) 11/15/202409/2020, 01/14/2017 SARS-COV-2 Immunization ( season) 2024 2020, 10/07/2020 Respiratory Syncytial Virus (RSV) Immunization (Adult) (1 - 1-dose 75+ series) 2028 DTaP/Tdap/Td Immunization Discontinued 2015, 09/13/2005 Pneumococcal Immunization (5 0+ years) Completed 01/02/2016, 04/26/2014, 01/14/2001 TdaP Immunization Completed 01/02/2016, 09/13/2005 Hepatitis B Immunization Aged Out No longer eligible based on patient's age to complete this topic Human Papillomavirus (HPV) Immunization Aged Out No longer eligible based on patient's age to complete this topic Meningococcal Immunization (ACWY) Aged Out No longer eligible based on patient's age to complete this topic Rotavirus Immunization Aged Out No lo nger eligible based on patient's age to complete this topic Insurance MEDICARE C AETNA Care Teams Inspector Outside Steam Distribution Relationship Specialty Start Date End Date Debbie Mcgarry MD [address] [facility] [place] [address] PCP - General Geriatric Medicine 02/21/21
--- OUTSIDE RECORDS SUMMARY | 2024-11-23 12:50 | XMS_ITS | Encounter Summary ---
Author Organization [facility] Address [address] [place] [address] Phone Care Team Providers Care Labor Economist Name Role Phone Debbie Mcgarry MD Primary Care Provider [phone] Talon Levy MD Unavailable [phone] Nerissa Rosario MD Unavailable [phone] Cricket Gamez MD Unavailable Encounter Details Date Type Department Care Team (Late st Contact Info) Description 02/21/2021 Orders Only [facility] [address] [place] [address] Scanning, Provider Social History Tobacco Use Types Packs/Day Years Used Date Smoking Tobacco: Every Day Cigarettes Smokeless Tobacco: Never Alcohol Use Standard Drinks/Week [...] points, staff should administer the PHQ-9) 0 11/28/2020 Comments No Sex and Gender Information Value Date Recorded Sex Assigned at Not on file 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 Gender Identity Not on file Sexual Orientation Not on file 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 Not on file Not on file documented as of this encounter Plan of Treatment Not on file documented as of this encounter Procedures Procedure Name Priority Date/Time Associated Diagnosis Comments SCAN - RADIOLOGY/IMAGING 02/21/2021 documented in this encounter Results * SCAN - RADIOLOGY/IMAGING (02/21/2021) Anatomical Region Laterality Modality Other us Provider Scanning Final Result documented in this encounter Visit Diagnoses Not on filedocumented in this encounter Additional Health Concerns Infection Onset Date Last Indicated Resolved Time COVID: Suspected 11/21/2021 11/21/2021 11/21/2021 3:05 PM CDT COVID: Suspected 02/26/2022 02/26/2022 02/26/2022 7:21 PM ADVERTISING DESIGNER COVID: Suspected 06/30/2024 06/30/2024 06/30/2024 4:55 PM CDT documented as of this encounter Care Teams Labor Economist Relationship Specialty Start Date End Date Debbie Mcgarry MD PCP - General 06/14/16 Talon Levy MD [address] [facility] [address] ZACH Butler [address] [address] Surgeon Orthopedic Surgery 01/07/17 [place] [id number] [place] [id number] Referring Physician Endocrinology Diabetes & Metabolism 08/02/21 [place] [id number] [place] [id number] Consulting Physician Pulmonary Disease 08/23/21 documented as of this encounter
== END 2024-11-23 12:35 | disposition home or self-care (01) ==
PROVIDERS: Emergency Provider Nurse Practitioner; PCP Internal Medicine Geriatric Medicine
DX: J18.9 Pneumonia, unspecified organism (principal); F17.210 Nicotine dependence, cigarettes, uncomplicated; J44.9 Chronic obstructive pulmonary disease, unspecified; E78.5 Hyperlipidemia, unspecified; K21.9 Gastro-esophageal reflux disease without esophagitis; Z96.653 Presence of artificial knee joint, bilateral; Z90.710 Acquired absence of both cervix and uterus
CPT/HCPCS: 71046; 71110; 99213; G0463